=== PATIENT | female | born 1965 | race Caucasian/White ===

== ENCOUNTER 2020-06-10 07:00 | Outpatient (REF) | payer BC, SELFPAY ==
[2020-06-10 07:25] LABS: MANUAL DIFF FLAG NO
[2020-06-10 07:28] LABS: Basophils Absolute Auto 0.1 X10*3/uL (0.0-0.2); Basophils Percent Auto 0.7 % (0-2); Eosinophils Absolute Auto 0.3 X10*3/uL (0.0-0.4); Eosinophils Percent Auto 4.7 % (0-4); Hemoglobin 14.1 g/dl (12.0-16.0); Imm Gran Abs Auto 0.03 X10*3/uL (0.00-0.03); Imm Gran Pct Auto 0.4 % (0.0-0.4); Lymphocytes Absolute Auto 2.2 X10*3/uL (1.2-4.9); Lymphocytes Percent Auto 33.1 % (20-40); Mean Corpuscular Hemoglobin 28.9 pg (27.0-33.0); Mean Corpuscular Volume 90.2 fL (80-98); Mean Platelet Volume 8.7 fL (9.4-12.3); Monocytes Absolute Auto 0.4 X10*3/uL (0.1-1.2); Monocytes Percent Auto 5.3 % (2-11); Neutrophils Absolute Auto 3.8 X10*3/uL (2.0-8.3); Neutrophils Percent Auto 55.8 % (45-73); Platelet Count 315 X10*3/uL (160-400); Red Blood Count 4.88 X10*6/uL (4.20-5.50); Red Cell Distribution Width 12.7 % (11.0-16.0); White Blood Count 6.8 X10*3/uL (4.8-10.8)
[2020-06-10 07:50] LABS: Alanine Aminotransferase 33 U/L (0-31); Albumin Level 4.3 g/dL (3.5-5.0); Alkaline Phosphatase 72 U/L (39-117); Anion Gap 11 (12-20); Aspartate Amino Transferase 23 U/L (5-31); Bilirubin Total 0.6 mg/dL (0.0-1.0); Blood Urea Nitrogen 20 mg/dL (9-16); Carbon Dioxide 27 mmol/L (22-29); Chloride 106 mmol/L (96-108); Cholesterol 224 mg/dL; Estimated Glomerular Filt Rate > 60; Glucose Random 105 mg/dL (60-115); HDL Cholesterol 58 mg/dL; LDL Cholesterol Calculated 139 mg/dl; Potassium 4.4 mmol/l (3.3-5.1); Sodium 140 mmol/L (135-145); Total Protein 7.1 g/dL (6.5-8.0); Triglycerides 136 mg/dL
[2020-06-10 08:12] LABS: Vitamin D 25-OH Total 27.9 ng/mL (>30)
[2020-06-10 08:33] LABS: Erythrocyte Sedimentation Rate 12 MM/HR (0-20)
[2020-06-10 09:33] LABS: Folate 14.8 ng/mL (> or = 4.0); Vitamin B12 508 pg/mL (200-900)
== END 2020-06-10 07:01 | disposition home or self-care (01) ==
LOC: HO.LAB 07:00
PROVIDERS: Visit Provider Internal Medicine
DX: E03.9 Hypothyroidism, unspecified (principal); E78.00 Pure hypercholesterolemia, unspecified
CPT/HCPCS: 36415; 80053; 80061; 82306; 82607; 82746; 84439; 84443; 85025; 85652

== ENCOUNTER 2020-06-17 10:22 | Outpatient (REF) | payer BC, SELFPAY ==
--- NOTE | 2020-06-17 10:27 | XR_ITS ---
EXAMINATION: XR tibia fibula RT 2V, XR knee RT 2V CLINICAL INFORMATION: Pain COMPARISON: None available at the time of this dictation. TECHNIQUE: Frontal lateral tibia-fibula and right knee. FINDINGS: BONES: No fracture or dislocation is present. JOINTS: Joint spaces are preserved. There is no joint effusion. SOFT TISSUE: Normal XR/XR tibia fibula RT 2V IMPRESSION: No significant osseous changes to explain patient's pain symptoms.
--- NOTE | 2020-06-17 10:27 | XR_ITS ---
EXAMINATION: XR tibia fibula RT 2V, XR knee RT 2V CLINICAL INFORMATION: Pain COMPARISON: None available at the time of this dictation. TECHNIQUE: Frontal lateral tibia-fibula and right knee. FINDINGS: BONES: No fracture or dislocation is present. JOINTS: Joint spaces are preserved. There is no joint effusion. SOFT TISSUE: Normal XR/XR knee RT 2V IMPRESSION: No significant osseous changes to explain patient's pain symptoms.
== END 2020-06-17 10:23 | disposition home or self-care (01) ==
LOC: HO.XRAY 10:22
PROVIDERS: PCP Internal Medicine; Visit Provider Internal Medicine
DX: M79.604 Pain in right leg (principal)
CPT/HCPCS: 73560; 73590

== ENCOUNTER 2021-06-15 07:12 | Outpatient (REF) | payer BC, SELFPAY ==
[2021-06-15 11:19] LABS: MANUAL DIFF FLAG NO
[2021-06-15 11:28] LABS: Basophils Percent Auto 0.6 % (0-2); Eosinophils Absolute Auto 0.4 X10*3/uL (0.0-0.4); Eosinophils Percent Auto 5.8 % (0-4); Hematocrit 44.1 % (37.0-47.0); Imm Gran Abs Auto 0.02 X10*3/uL (0.00-0.03); Imm Gran Pct Auto 0.3 % (0.0-0.4); Lymphocytes Absolute Auto 1.9 X10*3/uL (1.2-4.9); Lymphocytes Percent Auto 29.2 % (20-40); Mean Corpuscular HGB Conc 31.7 g/dl (31.0-35.0); Mean Corpuscular Hemoglobin 28.3 pg (27.0-33.0); Mean Corpuscular Volume 89.3 fL (80.0-98.0); Mean Platelet Volume 9.1 fL (9.4-12.3); Monocytes Absolute Auto 0.3 X10*3/uL (0.1-1.2); Monocytes Percent Auto 5.2 % (2-11); Neutrophils Absolute Auto 3.86 x10*3/uL (2.0-8.3); Neutrophils Percent Auto 58.9 % (45-73); Platelet Count 339 X10*3/uL (160-400); Red Blood Count 4.94 X10*6/uL (4.20-5.50); Red Cell Distribution Width 12.9 % (11.0-16.0); White Blood Count 6.6 X10*3/uL (4.8-10.8)
[2021-06-15 12:05] LABS: Alanine Aminotransferase 20 U/L (0-31); Albumin Level 4.4 g/dL (3.5-5.0); Alkaline Phosphatase 71 U/L (39-117); Anion Gap 14 (12-20); Aspartate Amino Transferase 19 U/L (5-31); Bilirubin Total 0.3 mg/dL (0.0-1.0); Blood Urea Nitrogen 18 mg/dL (9-16); Calcium 9.5 mg/dL (8.4-10.2); Carbon Dioxide 24 mmol/L (22-29); Chloride 109 mmol/L (96-108); Cholesterol 239 mg/dL; Estimated Glomerular Filt Rate > 60; Glucose Random 103 mg/dL (60-115); HDL Cholesterol 71 mg/dL; LDL Cholesterol Calculated 155 mg/dl; Potassium 4.7 mmol/L (3.3-5.1); Sodium 142 mmol/L (135-145); Total Protein 7.5 g/dL (6.5-8.0); Triglycerides 69 mg/dL
[2021-06-15 12:30] LABS: Free T4 (Free Thyroxine) 1.03 ng/dL (0.71-1.85); Thyroid Stimulating Hormone 1.44 uIU/mL (0.32-4.0); Vitamin D 25-OH Total 25.4 ng/mL (>30)
[2021-06-15 12:40] LABS: Folate 18.6 ng/mL (> or = 4.0); Vitamin B12 459 pg/mL (200-900)
== END 2021-06-15 07:13 | disposition home or self-care (01) ==
LOC: HO.WFDLDS 07:12
PROVIDERS: PCP Internal Medicine; Visit Provider Internal Medicine
DX: E78.00 Pure hypercholesterolemia, unspecified (principal)
CPT/HCPCS: 36415; 80053; 80061; 82306; 82607; 82746; 84439; 84443; 85025

== ENCOUNTER 2021-09-28 07:05 | Outpatient (REF) | payer BC, SELFPAY ==
[2021-09-28 11:10] LABS: Alanine Aminotransferase 26 U/L (0-31); Albumin Level 4.2 g/dL (3.5-5.0); Alkaline Phosphatase 77 U/L (39-117); Anion Gap 11 (12-20); Aspartate Amino Transferase 23 U/L (5-31); Bilirubin Total 0.5 mg/dL (0.0-1.0); Blood Urea Nitrogen 18 mg/dL (9-16); Calcium 9.7 mg/dL (8.4-10.2); Carbon Dioxide 27 mmol/L (22-29); Chloride 106 mmol/L (96-108); Cholesterol 233 mg/dL; Estimated Glomerular Filt Rate > 60; Glucose Random 107 mg/dL (60-115); HDL Cholesterol 62 mg/dL; LDL Cholesterol Calculated 152 mg/dl; Potassium 4.4 mmol/L (3.3-5.1); Sodium 140 mmol/L (135-145); Total Protein 7.2 g/dL (6.5-8.0); Triglycerides 98 mg/dL
[2021-09-28 11:21] LABS: Estimated Average Glucose 111 mg/dL; Hemoglobin A1c % 5.5 %
== END 2021-09-28 07:06 | disposition home or self-care (01) ==
LOC: HO.WFDLDS 07:05
PROVIDERS: PCP Internal Medicine; Visit Provider Internal Medicine
DX: E78.00 Pure hypercholesterolemia, unspecified (principal)
CPT/HCPCS: 36415; 80053; 80061; 83036

== ENCOUNTER → 2021-12-13 13:37 | Outpatient (BNVA) | payer BC, SELFPAY | PROVIDERS: PCP Internal Medicine; Visit Provider Dietitian, Registered | DX: R73.01 Impaired fasting glucose (principal) | CPT/HCPCS: 97802 ==

== ENCOUNTER → 2022-02-01 12:34 | Outpatient (BNVA) | payer BC, SELFPAY | PROVIDERS: PCP Internal Medicine; Visit Provider Dietitian, Registered | DX: R73.01 Impaired fasting glucose (principal) | CPT/HCPCS: 97803 ==

== ENCOUNTER 2022-03-13 07:14 | Outpatient (REF) | payer BC, SELFPAY ==
[2022-03-13 11:56] LABS: TSH reflex Free T4 0.82 uIU/mL (0.32-4.0)
== END 2022-03-13 07:15 | disposition home or self-care (01) ==
LOC: HO.WFDLDS 07:14
PROVIDERS: Visit Provider Internal Medicine Endocrinology, Diabetes & Metabolism
DX: E03.9 Hypothyroidism, unspecified (principal)
CPT/HCPCS: 36415; 84443

== ENCOUNTER 2022-06-26 07:11 | Outpatient (REF) | payer BC, SELFPAY ==
[2022-06-26 11:24] LABS: MANUAL DIFF FLAG NO
[2022-06-26 11:44] LABS: Basophils Absolute Auto 0.1 X10*3/uL (0.0-0.2); Basophils Percent Auto 0.8 % (0-2); Eosinophils Absolute Auto 0.2 X10*3/uL (0.0-0.4); Hemoglobin 13.8 g/dl (12.0-16.0); Imm Gran Abs Auto 0.03 X10*3/uL (0.00-0.03); Imm Gran Pct Auto 0.5 % (0.0-0.4); Lymphocytes Absolute Auto 2.2 X10*3/uL (1.2-4.9); Lymphocytes Percent Auto 36.7 % (20-40); Mean Corpuscular HGB Conc 32.1 g/dl (31.0-35.0); Mean Corpuscular Hemoglobin 28.3 pg (27.0-33.0); Mean Corpuscular Volume 88.1 fL (80.0-98.0); Mean Platelet Volume 9.1 fL (9.4-12.3); Monocytes Absolute Auto 0.3 X10*3/uL (0.1-1.2); Neutrophils Absolute Auto 3.3 x10*3/uL (2.0-8.3); Platelet Count 332 X10*3/uL (160-400); Red Blood Count 4.88 X10*6/uL (4.20-5.50); Red Cell Distribution Width 13.1 % (11.0-16.0)
[2022-06-26 11:55] LABS: Estimated Average Glucose 108 mg/dL; Hemoglobin A1c % 5.4 %
[2022-06-26 11:59] LABS: Alanine Aminotransferase 21 U/L (0-31); Albumin Level 4.3 g/dL (3.5-5.0); Alkaline Phosphatase 77 U/L (39-117); Anion Gap 13 (12-20); Aspartate Amino Transferase 21 U/L (5-31); Bilirubin Total 0.4 mg/dL (0.0-1.0); Blood Urea Nitrogen 15 mg/dL (9-16); Calcium 9.5 mg/dL (8.4-10.2); Carbon Dioxide 27 mmol/L (22-29); Chloride 108 mmol/L (96-108); Cholesterol 242 mg/dL; Estimated Glomerular Filt Rate > 60; Glucose Random 99 mg/dL (60-115); HDL Cholesterol 67 mg/dL; LDL Cholesterol Calculated 157 mg/dl; Potassium 4.5 mmol/L (3.3-5.1); Sodium 143 mmol/L (135-145); Total Protein 7.3 g/dL (6.5-8.0); Triglycerides 92 mg/dL
== END 2022-06-26 07:12 | disposition home or self-care (01) ==
LOC: HO.WFDLDS 07:11
PROVIDERS: Visit Provider Internal Medicine
DX: E78.00 Pure hypercholesterolemia, unspecified (principal); R73.01 Impaired fasting glucose
CPT/HCPCS: 36415; 80053; 80061; 83036; 85025

== ENCOUNTER 2022-10-09 07:39 | Outpatient (REF) | payer OTHER, SELFPAY ==
[2022-10-09 08:10] LABS: Estimated Average Glucose 111 mg/dL; Hemoglobin A1c % 5.5 %
[2022-10-09 08:22] LABS: Alanine Aminotransferase 28 U/L (0-31); Albumin Level 4.3 g/dL (3.5-5.0); Alkaline Phosphatase 68 U/L (39-117); Anion Gap 12 (12-20); Aspartate Amino Transferase 24 U/L (5-31); Bilirubin Total 0.5 mg/dL (0.0-1.0); Blood Urea Nitrogen 18 mg/dL (9-16); Calcium 9.5 mg/dL (8.4-10.2); Carbon Dioxide 28 mmol/L (22-29); Chloride 108 mmol/L (96-108); Cholesterol 198 mg/dL; Estimated Glomerular Filt Rate > 60; Glucose Random 96 mg/dL (60-115); HDL Cholesterol 52 mg/dL; LDL Cholesterol Calculated 132 mg/dl; Potassium 4.5 mmol/L (3.3-5.1); Sodium 143 mmol/L (135-145); Total Protein 7.3 g/dL (6.5-8.0); Triglycerides 70 mg/dL
== END 2022-10-09 07:40 | disposition home or self-care (01) ==
LOC: HO.LAB 07:39
PROVIDERS: PCP Internal Medicine; Visit Provider Internal Medicine
DX: E78.00 Pure hypercholesterolemia, unspecified (principal); R73.02 Impaired glucose tolerance (oral)
CPT/HCPCS: 36415; 80053; 80061; 83036

== ENCOUNTER 2023-06-27 07:14 | Outpatient (REF) | payer OTHER, SELFPAY ==
[2023-06-27 11:07] LABS: MANUAL DIFF FLAG NO
[2023-06-27 11:09] LABS: Basophils Absolute Auto 0.1 X10*3/uL (0.0-0.2); Basophils Percent Auto 1.3 % (0-2); Eosinophils Absolute Auto 0.4 X10*3/uL (0.0-0.4); Eosinophils Percent Auto 6.3 % (0-4); Hematocrit 43.4 % (37.0-47.0); Hemoglobin 13.8 g/dl (12.0-16.0); Imm Gran Abs Auto 0.02 X10*3/uL (0.00-0.03); Imm Gran Pct Auto 0.4 % (0.0-0.4); Lymphocytes Absolute Auto 2.3 X10*3/uL (1.2-4.9); Mean Corpuscular HGB Conc 31.8 g/dl (31.0-35.0); Mean Corpuscular Hemoglobin 28.6 pg (27.0-33.0); Mean Platelet Volume 9.5 fL (9.4-12.3); Monocytes Absolute Auto 0.3 X10*3/uL (0.1-1.2); Monocytes Percent Auto 5.4 % (2-11); Neutrophils Absolute Auto 2.5 x10*3/uL (2.0-8.3); Neutrophils Percent Auto 44.6 % (45-73); Platelet Count 318 X10*3/uL (160-400); Red Blood Count 4.82 X10*6/uL (4.20-5.50); Red Cell Distribution Width 12.5 % (11.0-16.0); White Blood Count 5.5 X10*3/uL (4.8-10.8)
[2023-06-27 11:42] LABS: Alanine Aminotransferase 22 U/L (0-31); Albumin Level 4.3 g/dL (3.5-5.0); Alkaline Phosphatase 63 U/L (39-117); Anion Gap 10 (12-20); Aspartate Amino Transferase 24 U/L (5-31); Bilirubin Total 0.4 mg/dL (0.0-1.0); Blood Urea Nitrogen 17 mg/dL (9-16); Calcium 9.4 mg/dL (8.4-10.2); Carbon Dioxide 27 mmol/L (22-29); Chloride 108 mmol/L (96-108); Cholesterol 193 mg/dL (<200); Estimated Glomerular Filt Rate > 60; Glucose Random 91 mg/dL (60-115); HDL Cholesterol 61 mg/dL (>40); LDL Cholesterol Calculated 119 mg/dL (<100); Potassium 4.2 mmol/L (3.3-5.1); Sodium 141 mmol/L (135-145); Total Protein 7.3 g/dL (6.5-8.0); Triglycerides 68 mg/dL (<150)
[2023-06-27 12:01] LABS: Folate 14.2 ng/mL (> or = 4.0); Vitamin B12 471 pg/mL (200-900)
[2023-06-27 12:08] LABS: Free T4 (Free Thyroxine) 1.09 ng/dL (0.71-1.85); Thyroid Stimulating Hormone 0.52 uIU/mL (0.32-4.0); Vitamin D 25-OH Total 40.5 ng/mL (>30)
== END 2023-06-27 07:15 | disposition home or self-care (01) ==
LOC: HO.WFDLDS 07:14
PROVIDERS: Visit Provider Internal Medicine
DX: E78.00 Pure hypercholesterolemia, unspecified (principal); E55.9 Vitamin D deficiency, unspecified
CPT/HCPCS: 36415; 80053; 80061; 82306; 82607; 82746; 84439; 84443; 85025

== ENCOUNTER 2023-07-01 12:25 | Outpatient (AMB) | payer OTHER, SELFPAY ==
[2023-07-01 12:27] VITALS: BP 118/86; PULSE 71; O2SAT 98; BMI 26.6
--- NOTE | 2023-07-01 12:27 | MHC.PC.OV ---
Vital Signs 07/01/23 12:27 Height 5 ft 5 in Weight 160 lb 0.2 oz BMI 26.6 BP 118/86 Blood Pressure Location Lt brachial Position Sitting Pulse 71 Pulse Source Pulse Oximeter Pulse Oximetry (%) 98 Oxygen Delivery Method Room Air Intake Visit Reasons: Annual Exam Scuba Instructor Required: No Allergies clarithromycin [From Biaxin] Allergy (Intermediate, Verified 07/01/23 12:31) diarrhea oxycodone [From Tylox] Adverse Reaction (Intermediate, Verified 07/01/23 12:31) vomiting Medication List - Last Reconciled 07/01/23 by Dina Machado MD budesonide 32 mcg/actuation (Rhinocort Allergy) 2 sprays intranasal DAILY cetirizine (Zyrtec) 10 mg PO DAILY levothyroxine 125 mcg PO DAILY simvastatin 5 mg PO BEDTIME Tobacco use date assessed: 07/01/23 Dental Screening Dental Screen Date: 07/01/23 Did you have a dental visit in the last 12 months?: Yes Did you have a dental problem in the last 6 months where you did not have access to dental care?: No Was dental information given to patient?: Patient has dentist HPI Annual Exam HPI Details 57-year-old female with impaired glucose tolerance hypercholesterolemia hypothyroidism last seen in October 2022. Patient was advised to get blood work done. Patient is up-to-date with Paps, due for mammogram and up to the with colonoscopy. occ lightheaded, PFSH Medical History (Updated 07/01/23 @ 12:55 by Dina Machado MD) Colon cancer screening Raynauds disease Hypercholesterolemia Hypothyroid Surgical History No pertinent past surgical history Family History Father CAD (coronary artery disease) Mother Myocardial infarction Maternal Aunt Renal cancer Social History (Updated 07/01/23 @ 12:41 by Dina Machado MD) Housing: House Alcohol intake: current Alcohol intake frequency: a few times a week Patient Tobacco Use Status: Never used Tobacco e-Cigarette/Vaping Use: Never Used Second Hand Smoke Exposure: No Current occupational status: employed Cognitive needs: No Hearing needs: No Vision needs: Yes (wears contacts) Questionnaire PHQ-9 Over the last 2 weeks, how often have you been bothered by any of the following problems? 1. Little interest or pleasure in doing things: not at all 2. Feeling down, depressed, or hopeless: not at all 3. Trouble falling or staying asleep, or sleeping too much: not at all 4. Feeling tired or having little energy: not at all 5. Poor appetite or overeating: not at all 6. Feeling bad about yourself - or that you are a failure or have let yourself or your family down: not at all 7. Trouble concentrating on things, such as reading the newspaper or watching television: not at all 8. Moving or speaking so slowly that other people could have noticed. Or the opposite - being so fidgety or restless that you have been moving around a lot more than usual: not at all 9. Thoughts that you would be better off or of hurting yourself in some way: not at all Total score: 0 Depression Screening Interpretation: Negative Depression Screening Done: Yes Source: Developed by Drs. David Lowe, Yojana Moon, David Jaquez and colleagues, with an educational alma from [employer]. Thrive Questionnaire Date Thrive assessed: 07/01/23 I am a: Patient What is your living situation today?: I have a steady place to live Within the past 12 months, did the food you bought not last and you didn't have the money to get more?: Never true Within the past 12 months, did you worry whether your food would run out before you got money to buy more?: Never true Currently or been in a relationship where the following occur: no concerns reported AUDIT C Alcohol Use Questionnaire (AUDIT-C) 1. How often do you have a drink containing alcohol?: 2-3 times a week 2. How many drinks containing alcohol do you have on a typical day when you are drinking?: 1 or 2 3. How often do you have six or more drinks on one occasion?: Never Total Score: 3 AFIA-7 AMB Questionnaire AFIA-7 Date AFIA - 7 assessed: 07/01/23 Feeling nervous, anxious, or on edge: 0 = Not at all Not being able to stop or control worryin = Not at all Worrying too much about different things: 0 = Not at all Trouble relaxin = Not at all Being so restless that it is hard to sit still: 0 = Not at all Becoming easily annoyed or irritable: 0 = Not at all Feeling afraid as if something awful might happen: 0 = Not at all Total AFIA-7 score (0-4 normal; 5-9 mild; 10-14 moderate; 15-21 severe): 0 Source: Developed by Drs. David Lowe, Yojana Moon, David Jaquez and colleagues, with an educational alma from [employer]. Review of Systems Const Denies poor appetite and Denies weakness Eyes Denies no additional complaints ENT Reports Normal hearing present, Denies dizziness, Denies nasal congestion, Denies tinnitus and Denies sore throat Card Denies chest pain, Denies syncope, Denies rapid heart rate and Denies dyspnea Resp Denies cough and Denies dyspnea GI Denies change in stool character, Reports constipation, Denies diarrhea, Denies nausea and Denies vomiting Denies urinary frequency, Denies difficulty voiding and Denies dysuria Neuro Reports Normal hearing present, Denies confusion, Denies dizziness, Denies syncope and Denies weakness Psych Denies confusion Physical exam (Primary Care) Vital Signs: Last Vital Signs Pulse 71 07/01/23 12:27 BP 118/86 07/01/23 12:27 Pulse Ox 98 07/01/23 12:27 Oxygen Delivery Method Room Air 07/01/23 12:27 BMI result Body Mass Index 26.6 Tobacco/Smoking Status: Tobacco use Status Tobacco use date assessed 07/01/23 07/01/23 12:28 Patient Tobacco Use Status Never used Tobacco 07/01/23 12:41 e-Cigarette/Vaping Use Never Used 07/01/23 12:41 PHQ-9: PHQ-9 Score PHQ-9: Total score 0 07/01/23 12:36 Depression Screening Interpretation: Negative Thrive Assessment: Date of Thrive Assessment Date Thrive assessed 07/01/23 07/01/23 12:35 Currently or been in a relationship where the following occur: no concerns reported Const General: No confusion Orientation/consciousness: No confusion HENMT Head: Yes normocephalic Ears: external ears normal and TM's normal bilaterally Face and sinus: Yes normal facial exam Mouth: moist mucous membranes Throat: Yes tonsils normal Eyes Conjunctivae: conjunctivae normal Pupils: Equal, round and reactive pupils present and Pupil accommodation reflex normal Direct Ophthalmoscopy: normal light reflex Neck Neck: No lymphadenopathy Thyroid: Thyroid normal Chest Chest palpation & inspection: normal inspection of the chest Resp Effort & Inspection: normal respiratory effort and no audible wheezes Auscultation: clear to auscultation bilaterally, no crackles, no wheezes and lung sounds not diminished Cardio Rate: regular rate Rhythm: regular rhythm Peripheral pulses: radial pulses present and dorsalis pedis present GI Palpation (GI): no masses Auscultation: normal bowel sounds and normoactive bowel sounds Rectal Exam - Female: deferred Skin General skin exam: no rashes or lesions noted Rashes: no rashes Neuro General: No confusion Cranial nerves: Yes Equal, round and reactive pupils present and Yes Normal hearing present Cognition (Neuro): normal cognition Gait exam (Neuro): Normal gait present Motor exam (neuro): 5/5 motor strength present throughout Deep tendon reflexes (DTR's): Right brachioradialis reflex intensity grade: 2+, Left brachioradialis reflex intensity grade: 2+, Right patellar reflex intensity grade: 2+ and Left patellar reflex intensity grade: 2+ Extrem General: No edema Office Procedures Flu Questionnaire Does the patient have a severe egg allergy?: No Does the patient have severe life threatening allergies?: No Does the patient have a fever or illness today?: No Has the patient ever had Guillain-[place] Syndrome?: No Has the patient ever had any past reaction to a flu shot?: No Immunizations flu vacc [id number] 6mos up(PF) 60 mcg(15 mcgx4)/0.5 mL IM syringe Performing Provider: Dina Machado MD [facility] Administered by: JESSEE Aquino on 07/01/23 12:48 Dose Route Admin Location Dispensed Lot Number Expiration Date [employer] 0.5 mL IM Left Deltoid 0.5 mL [id number] 02/09/24 [id number] [employer] VIS Given Date VIS Provided VIS Publication Date 07/01/23 Single Vaccine 21 Eligibility Eligibility Date Funding Source Not [facility] Eligible 07/01/23 Private Assessment and Plan Assessment & Plan (1) Annual physical exam: Code(s): Z00.00 - Encounter for general adult medical examination without abnormal findings (2) Hypothyroid: Comment: Goiter seeing Dr. Ortega June 2015 Code(s): E03.9 - Hypothyroidism, unspecified Qualifiers: Hypothyroidism type: unspecified Qualified Code(s): E03.9 - Hypothyroidism, unspecified Plan: Continue with thyroid medication (3) Hypercholesterolemia: Comment: memory problem Code(s): E78.00 - Pure hypercholesterolemia, unspecified Plan: Avoid fried foods, chicken skin, eggs, butter margarine, pastries and meat. Be it pork or beef they have a lot of cholesterol LDL goal of less than 130 and triglyceride of less than 150 patient on simvastatin 5 mg once a (4) Generalized anxiety disorder: Code(s): F41.1 - Generalized anxiety disorder Plan: Stable (5) Overweight (BMI 25.0-29.9): Code(s): E66.3 - Overweight Plan: continue with diet and exercise (6) Floaters: Code(s): H43.399 - Other vitreous opacities, unspecified eye Orders: Orders Influenza [id number] Immunization Today Z23 - Encounter for immunization Coding Level of Care Code Est Pt Prev Care 40-64y(13520) Diagnoses Annual physical exam Z00.00 Hypothyroidism, unspecified type E03.9 Hypothyroidism type: unspecified Hypercholesterolemia E78.00 Generalized anxiety disorder F41.1 Overweight (BMI 25.0-29.9) E66.3 Floaters H43.399
== END 2023-07-01 13:00 | disposition home or self-care (01) ==
PROVIDERS: Visit Provider Internal Medicine
DX: Z00.00 Encounter for general adult medical examination without abnormal findings (principal); E03.9 Hypothyroidism, unspecified; E78.00 Pure hypercholesterolemia, unspecified; Z23 Encounter for immunization; F41.1 Generalized anxiety disorder; E66.3 Overweight; H43.399 Other vitreous opacities, unspecified eye
CPT/HCPCS: 90471; 90686; 99396

== ENCOUNTER 2024-03-24 07:46 | Outpatient (REF) | payer OTHER, SELFPAY ==
[2024-03-24 12:48] LABS: Free T4 (Free Thyroxine) 1.11 ng/dL (0.71-1.85); TSH reflex Free T4 0.54 uIU/mL (0.32-4.0)
[2024-03-25 19:04] LABS: Transglutaminase Ab IgG <1.0 U/mL
== END 2024-03-24 07:47 | disposition home or self-care (01) ==
LOC: HO.WFDLDS 07:46
DX: E03.9 Hypothyroidism, unspecified (principal); R53.83 Other fatigue
CPT/HCPCS: 36415; 84439; 84443; 86364

== ENCOUNTER 2024-07-08 12:36 | Outpatient (AMB) | payer OTHER, SELFPAY ==
[2024-07-08 12:38] VITALS: BP 122/76; PULSE 80; O2SAT 98; BMI 27.3
--- NOTE | 2024-07-08 12:38 | A.OFFPC_ITS ---
Vital Signs 07/08/24 12:38 Height 5 ft 5 in Weight 74.389 kg BMI 27.3 BP 122/76 Blood Pressure Location Lt brachial Position Sitting Pulse 80 Pulse Source Pulse Oximeter Pulse Oximetry (%) 98 Oxygen Delivery Method Room Air Intake Visit Reasons: Annual Exam Allergies clarithromycin [From Biaxin] Allergy (Intermediate, Verified 07/08/24 12:38) diarrhea oxycodone [From Tylox] Adverse Reaction (Intermediate, Verified 07/08/24 12:38) vomiting Medication List - Last Reconciled 07/08/24 by Dina Machado MD budesonide 32 mcg/actuation (Rhinocort Allergy) 2 sprays intranasal DAILY cetirizine (Zyrtec) 10 mg PO DAILY levothyroxine 125 mcg PO DAILY melatonin 5 mg PO .QHS cqgvjqoabhtj-Um-berr-minerals tabs PO Tobacco use date assessed: 07/08/24 Dental Screening Dental Screen Date: 07/08/24 Did you have a dental visit in the last 12 months?: Yes Did you have a dental problem in the last 6 months where you did not have access to dental care?: No Was dental information given to patient?: Patient has dentist HPI Annual Exam HPI Details 58 year old overweight female with a his tory of hypothyroid, hypercholesterolemia generalized anxiety disorder coming in for physical exam last seen last year. Patient's colonoscopy was done in 2018, mammogram up-to-date 2023. stopped 6 weeks simvastatin ? memory and leg cramps PFSH Medical History (Updated 07/08/24 @ 12:52 by Dina Machado MD) Colon cancer screening Raynauds disease Hypercholesterolemia Hypothyroid Surgical History No pertinent past surgical history Family History (Updated 07/08/24 @ 12:39 by Eli Champagne CMA) Father CAD (coronary artery disease) Mother Myocardial infarction Maternal Aunt Renal cancer Social History (Updated 07/01/23 @ 12:41 by Dina Machado MD) Housing: House Alcohol intake: current Alcohol intake frequency: a few times a week Comment: 3 days weekend 2-3 drinks Patient Tobacco Use Status: Never used Tobacco Tobacco use type: Cigarette e-Cigarette/Vaping Use: Never Used Second Hand Smoke Exposure: No Current occupational status: employed Cognitive needs: No Hearing needs: No Vision needs: Yes (wears contacts) Questionnaire PHQ-9 Over the last 2 weeks, how often have you been bothered by any of the following problems? 1. Little interest or pleasure in doing things: not at all 2. Feeling down, depressed, or hopeless: not at all 3. Trouble falling or staying asleep, or sleeping too much: not at all 4. Feeling tired or having little energy: not at all 5. Poor appetite or overeating: not at all 6. Feeling bad about yourself - or that you are a failure or have let yourself or your family down: not at all 7. Trouble concentrating on things, such as reading the newspaper or watching television: not at all 8. Moving or speaking so slowly that other people could have noticed. Or the opposite - being so fidgety or restless that you have been moving around a lot more than usual: not at all 9. Thoughts that you would be better off or of hurting yourself in some way: not at all Total score: 0 Source: Developed by Drs. David Lowe, Yojana Moon, David Jaquez and colleagues, with an educational alma from [employer]. Thrive Questionnaire Date Thrive assessed: 07/08/24 I am a: Patient What is your living situation today?: I have a steady place to live Within the past 12 months, did the food you bought not last and you didn't have the money to get more?: Never true Within the past 12 months, did you worry whether your food would run out before you got money to buy more?: Never true Do you have trouble paying for medicines?: No Do you have trouble getting transportation to medical appointments?: No Do you have trouble paying your heating and electricity bill?: No Do you have trouble taking care of your child, family member or friend?: No Do you have trouble with day-to-day activities such as bathing, preparing meals, shopping, managing finances, etc.?: No Are you currently unemployed and looking for a job?: No Are you interested in more education?: No Please select the resources that you would like help with: None Currently or been in a relationship where the following occur: I choose not to answer THRIVE Score: 0 AUDIT C Alcohol Use Questionnaire (AUDIT-C) 1. How often do you have a drink containing alcohol?: 2-3 times a week 2. How many drinks containing alcohol do you have on a typical day when you are drinking?: 1 or 2 3. How often do you have six or more drinks on one occasion?: Never Total Score: 3 AFIA-7 AMB Questionnaire AFIA-7 Date AFIA - 7 assessed: 07/08/24 Feeling nervous, anxious, or on edge: 0 = Not at all Not being able to stop or control worryin = Not at all Worrying too much about different things: 0 = Not at all Trouble relaxin = Not at all Being so restless that it is hard to sit still: 0 = Not at all Becoming easily annoyed or irritable: 0 = Not at all Feeling afraid as if something awful might happen: 0 = Not at all Total AFIA-7 score (0-4 normal; 5-9 mild; 10-14 moderate; 15-21 severe): 0 Source: Developed by Drs. David Lowe, Yojana Moon, David Jaquez and colleagues, with an educational alma from [employer]. Review of Systems Const Denies poor appetite and Denies weakness Eyes Denies no additional complaints ENT Reports Normal hearing present, Denies dizziness, Denies nasal congestion, Denies tinnitus and Denies sore throat Card Denies chest pain, Denies syncope, Denies rapid heart rate and Denies dyspnea Resp Denies cough and Denies dyspnea GI Denies change in stool character, Reports constipation, Denies diarrhea, Denies nausea and Denies vomiting Denies urinary frequency, Denies difficulty voiding and Denies dysuria Neuro Reports Normal hearing present, Denies confusion, Denies dizziness, Denies syncope and Denies weakness Psych Denies confusion Physical exam (Primary Care) Vital Signs: Last Vital Signs Pulse 80 07/08/24 12:38 BP 122/76 07/08/24 12:38 Pulse Ox 98 07/08/24 12:38 Oxygen Delivery Method Room Air 07/08/24 12:38 BMI result Body Mass Index 27.3 Tobacco/Smoking Status: Tobacco use Status Tobacco use date assessed 07/08/24 07/08/24 12:44 Patient Tobacco Use Status Never used Tobacco 07/08/24 12:44 Tobacco use type Cigarette 07/08/24 12:44 e-Cigarette/Vaping Use Never Used 07/08/24 12:44 PHQ-9: PHQ-9 Score PHQ-9: Total score 0 07/08/24 12:44 Thrive Assessment: Date of Thrive Assessment Date Thrive assessed 07/08/24 07/08/24 12:44 Currently or been in a relationship where the following occur: I choose not to answer Const General: No confusion Orientation/consciousness: No confusion HENMT Head: Yes normocephalic Ears: external ears normal and TM's normal bilaterally Face and sinus: Yes normal facial exam Mouth: moist mucous membranes Throat: Yes tonsils normal Eyes Conjunctivae: conjunctivae normal Pupils: Equal, round and reactive pupils present and Pupil accommodation reflex normal Direct Ophthalmoscopy: normal light reflex Neck Neck: No lymphadenopathy Thyroid: Thyroid normal Chest Chest palpation & inspection: normal inspection of the chest Resp Effort & Inspection: normal respiratory effort and no audible wheezes Auscultation: clear to auscultation bilaterally, no crackles, no wheezes and lung sounds not diminished Cardio Rate: regular rate Rhythm: regular rhythm Peripheral pulses: radial pulses present and dorsalis pedis present GI Palpation (GI): no masses Auscultation: normal bowel sounds and normoactive bowel sounds Rectal Exam - Female: deferred Skin General skin exam: no rashes or lesions noted Rashes: no rashes Neuro General: No confusion Cranial nerves: Yes Equal, round and reactive pupils present and Yes Normal hearing present Cognition (Neuro): normal cognition Gait exam (Neuro): Normal gait present Motor exam (neuro): 5/5 motor strength present throughout Deep tendon reflexes (DTR's): Right brachioradialis reflex intensity grade: 2+, Left brachioradialis reflex intensity grade: 2+, Right patellar reflex intensity grade: 2+ and Left patellar reflex intensity grade: 2+ Extrem General: No edema Office Procedures Flu Questionnaire Does the patient have a severe egg allergy?: No Does the patient have severe life threatening allergies?: No Does the patient have a fever or illness today?: No Has the patient ever had Guillain-[place] Syndrome?: No Has the patient ever had any past reaction to a flu shot?: No Immunizations Fluarix Triv [id number] (PF) 45 mcg (15 mcg x 3)/0.5 mL IM syringe Performing Provider: Dina Machado MD [facility] Administered by: Eli Champagne CMA on 07/08/24 13:12 Dose Route Admin Location Dispensed Lot Number Expiration Date [facility] Trouble Tracer 0.5 mL IM Left Deltoid 0.5 mL [id number] 02/08/25 [id number] [employer] VIS Given Date VIS Provided VIS Publication Date 07/08/24 Single Vaccine 21 Eligibility Eligibility Date Funding Source Not [facility] Eligible 07/08/24 Private Coding Level of Care Code Est Pt Prev Care 40-64y(53650) Diagnoses Annual physical exam Z00.00 Overweight (BMI 25.0-29.9) E66.3 Hypothyroidism, unspecified type E03.9 Hypothyroidism type: unspecified Generalized anxiety disorder F41.1 Hypercholesterolemia E78.00 Assessment & Plan Assessment & Plan (1) Annual physical exam: Code(s): Z00.00 - Encounter for general adult medical examination without abnormal findings Category: Medical Plan: Patient is advised to eat healthy, keep well hydrated, keep active and have adequate sleep. (2) Overweight (BMI 25.0-29.9): Code(s): E66.3 - Overweight Category: Medical Plan: Diet and exercise (3) Hypothyroid: Comment: Goiter seeing Dr. Ortega June 2015 Code(s): E03.9 - Hypothyroidism, unspecified Category: Medical Qualifiers: Hypothyroidism type: unspecified Qualified Code(s): E03.9 - Hypothyroidism, unspecified Plan: Continue with thyroid medication and blood work requested (4) Generalized anxiety disorder: Code(s): F41.1 - Generalized anxiety disorder Category: Medical Plan: Stable (5) Hypercholesterolemia: Comment: memory problem Code(s): E78.00 - Pure hypercholesterolemia, unspecified Category: Medical Plan: Avoid fried foods, chicken skin, eggs, butter margarine, pastries and meat. Be it pork or beef they have a lot of cholesterol LDL goal of less than 130 and triglyceride of less than 150. On simvastatin 5 mg once a day Orders: Orders Vitamin B12 and Folate Today E78.00 - Pure hypercholesterolemia, unspecified Vitamin D 25-OH Total Today E78.00 - Pure hypercholesterolemia, unspecified Complete Blood Count Auto Diff Today E78.00 - Pure hypercholesterolemia, unspecified Comprehensive Met. Panel Today E78.00 - Pure hypercholesterolemia, unspecified Lipid Panel Today E78.00 - Pure hypercholesterolemia, unspecified Free T4 (Free Thyroxine) Today E78.00 - Pure hypercholesterolemia, unspecified Thyroid Stimulating Hormone Today E78.00 - Pure hypercholesterolemia, unspecified Influenza [id number] Immunization Today Z23 - Encounter for immunization Medications: New Fluarix Triv [id number] (PF) (flu vacc [id number] 6mos up(PF)) 0.5 mL IM ONCE 0.5 mL 0RF NS Z23 - Encounter for immunization
== END 2024-07-08 13:18 | disposition home or self-care (01) ==
PROVIDERS: PCP Internal Medicine; Visit Provider Internal Medicine
DX: Z00.00 Encounter for general adult medical examination without abnormal findings (principal); E66.3 Overweight; E03.9 Hypothyroidism, unspecified; F41.1 Generalized anxiety disorder; E78.00 Pure hypercholesterolemia, unspecified; Z23 Encounter for immunization

== ENCOUNTER → 2024-07-08 12:36 | Outpatient (BNVA) | payer OTHER, SELFPAY | PROVIDERS: PCP Internal Medicine; Visit Provider Internal Medicine | DX: Z00.00 Encounter for general adult medical examination without abnormal findings (principal); Z23 Encounter for immunization; E66.3 Overweight; Z68.27 Body mass index [BMI] 27.0-27.9, adult; E03.9 Hypothyroidism, unspecified; F41.1 Generalized anxiety disorder; E78.00 Pure hypercholesterolemia, unspecified; Z79.899 Other long term (current) drug therapy | CPT/HCPCS: 90471; 90656; 96127 ==

== ENCOUNTER 2024-11-27 07:32 | Outpatient (REF) | payer OTHER, SELFPAY ==
--- OUTSIDE RECORDS SUMMARY | 2024-11-27 07:34 | XMS_ITS | Patient Health Record ---
Author Organization [facility] marva Hunt Address [address] [place] [address] Care Team Providers Care Binding Machine Operator Name Role Phone Carter Dina Primary Care Provider Unavailabl e Lis Palacios Unavailable [phone] Results Component Value Reference Range Notes X ray : Foot, left 3V Reviewed date:02/07/2024 11:39:53 AM Interpretation:See Examination above Performing Lab: Notes/Report: See Examination above X ray : Foot, right 3V Reviewed date:02/07/2024 11:39:44 AM Interpretation:See Examination above Performing Lab: Notes/Report: See Examination above Reason For Referral Diagnosis 1 Bunion of unspecifie d foot (M21.619) Referring Provider First Name Raisaradha Referring Provider Last Name Referred [facility] Referred Provider Lis Palacios Referred Address [address] [place], [place],[address], Referred Provider Specialty Podiatry Referral Priority Routine Medications Medication SIG (Take, Route, Fr equency, Duration) Notes Start Date End Date Status Levothyroxine Sodium Active Simvastatin Active Social History Tobacco Use: Social History Observation Description Date Details (start date - stop date) Never Smoker NA - NA Tobacco Use/Smoking Question Answer Notes Are you a: nonsmoker Additional Findings: Tobacco Non-User Current no n-smoker Alcohol Screen Question Answer Notes Did you have a drink containing alcohol in the p ast year? Yes Points 0 Interpretation Negative Tobacco use other than smoking: Question Answer Notes Are you an other tobacco user? No Problems Problem Type SNOMED Code ICD Code Onset Dates Problem Status W/U Status Risk Notes Problem Acquired hammer toe of right foot (9960389427167263) Other hammer toe(s) (acquired), right foot (M20.41) Active confirmed Problem Acquired hammer toe of left foot (0145996575823884) Other hammer toe(s) (acquired), left foot (M20.42) Active confirmed Problem Acquired hallux valgus (73467497) Hallux valgus (acquired), right foot (M20.11) Active confirmed Problem Localized, primary osteoarthritis of the ankle and/or foot (571767117) Arthritis of joint of lesser toe, left (M19.072) Active confirmed Problem Localized, primary osteoarthritis of the ankle and/or foot (386930745) Arthritis of joint of lesser toe, right (M19.071) Active confirmed Vital Signs Height 5 ft 5 in in 02/07/2024 Weight 156 lbs 02/07/2024 BMI 25.96 kg/m2 02/07/2024 Encounters Encounter Location Date Provider Diagnosis [facility] [address] 02/07/2024 Lis Palacios Pain in right foot M79.671 ; Hallux valgus (acquired), right foot M20.11 ; Pain in right ankle and joints of right foot M25.571 ; Bursitis of right foot M77.51 ; Pain in right toe(s) M79.674 ; Other hammer toe(s) (acquired), right foot M20.41 ; Pain in left toe(s) M79.675 and Other hammer toe(s) (acquired), left foot M20.42 [facility] [address] [place] [address] 01/14/2024 Lis Palacios Assessments Encounter Date Diagnosis (ICD Code) Assessment Notes Treatment Notes Treatment Clinical Notes Section Notes 02/07/2024 Pain in right foot (ICD-10 - M79.671) 02/07/2024 Hallux valgus (acquired), right foot (ICD-10 - M20.11) 02/07/2024 Pain in right ankle and joints of right foot (ICD-10 - M25.571) 02/07/2024 Bursitis of right foot (ICD-10 - M77.51) 02/07/2024 Pain in right toe(s) (ICD-10 - M79.674) 02/07/2024 Other hammer toe(s) (acquired), right foot (ICD-10 - M20.41) 02/07/2024 Pain in left toe(s) (ICD-10 - M79.675) 02/07/2024 Other hammer toe(s) (acquired), left foot (ICD-10 - M20.42) Plan Of Treatment No Information Insurance Providers Payer Name Payer Address Payer Phone Subscriber Number Group Number Insured Name Patient Relationship to Insured Coverage Start Date Coverage End Date [place] [address] [place] [phone] [id number] Roxie Dawn Self - patient is the insured Medical (General) History Medical History History ICD Code covid-19 thyroid Chicken pox Surgical History Surgery Date(Month/Year) laser eye surgery
--- OUTSIDE RECORDS SUMMARY | 2024-11-27 07:34 | XMS_ITS ---
Author Organization [facility] Address [address] [facility] [place] [address] Care Team Providers Care Billiard Table Mechanic Name Role Phone Dina Machado Primary Care Provider Unavailabl e Black, Lis Unavailable [phone] Results Component Value Reference Range Notes X ray : Foot, left 3V Reviewed date:02/07/2024 11:39:53 AM Interpretation:See Examination above Performing Lab: Notes/Report: See Examination above X ray : Foot, right 3V Reviewed date:02/07/2024 11:39:44 AM Interpretation:See Examination above Performing Lab: Notes/Report: See Examination above REASON FOR VISIT pt states last pcp visit was 06/2023, Foot pain, Painful Toe(s) Medications Medication SIG (Take, Route, Fr equency, [...] Status W/U Status Risk Notes Problem Acquired hallux valgus (46641648) Hallux valgus (acquired), right foot (M20.11) Active confirmed Problem Acquired hammer toe of right foot (9265654541851400) Other hammer toe(s) (acquired), right foot (M20.41) Active confirmed Problem Localized, primary osteoarthritis of the ankle and/or foot (828043524) Arthritis of joint of lesser toe, right (M19.071) Active confirmed Problem Acquired hammer toe of left foot (5968690099921699) Other hammer toe(s) (acquired), left foot (M20.42) Active confirmed Problem Localized, primary osteoarthritis of the ankle and/or foot (879332064) Arthritis of joint of lesser toe, left (M19.072) Active confirmed Vital Signs Height 5 ft 5 in in 02/07/2024 Weight 156 lbs 02/07/2024 BMI 25.96 kg/m2 02/07/2024 Encounters Encounter Location Date Provider Diagnosis [facility] [address] [place] [address] 02/07/2024 Lis Black Pain in right foot M79.671 ; Hallux valgus (acquired), right foot M20.11 ; Pain in right ankle and joints of right foot M25.571 ; Bursitis of right foot M77.51 ; Pain in right toe(s) M79.674 ; Other hammer toe(s) (acquired), right foot M20.41 ; Pain in left toe(s) M79.675 and Other hammer toe(s) (acquired), left foot M20.42 Assessments Encounter Date Diagnosis (ICD Code) Assessment [...] foot (ICD-10 - M20.42) Plan Of Treatment Next Appt Details Follow Up: prn, Reason: Progress Notes * Aziza DAWNneDOB:1965 (58 yo F)Acc No.[id number]:02/07/2024 Progress Notes Patient:?Roxie Dawn Provider:?Lis Palacios DPM :1965???Age:58 Y???Sex:Female D ate:02/07/2024 Address:[address] [place], [place] [id number] Pcp:Dina Machado Subjective: * Chief Complaints: * ???Pt states last pcp visit was 06/2023Foot painPainful Toe(s) * HPI: ???Foot Pain:?Location:?Inside, Great toe joint, RIGHT.?Duration:?several months.?Course:?worse.?Aggrevated:?any pressure.?Treatments:?rest/alter normal daily activity.?Toe pain:?Nature:?tenderness.?Location:?B/L feet.?Duration:?several months.?Course:?worse.?Aggrevated by:?shoes, any pressure.?Treatments:?rest/alter normal daily activity, change in shoes.? * ROS:?General/Constitutional:?Nausea?denies.?Vomiting?denies.?Hunger Thirst?denies.?Loss appetite?denies.?Chills?denies.?Fatigue?denies.?Fever?denies.?Night Sweats?denies.?Unexplained weight loss?denies.?Unexplained weight gain?denies.?HEENTM:?Dentures?denies.?Dizziness?denies.?Glasses/contacts?admits.?Retinopathy?de nies.?Blurred/double vision?denies.?TMJ?denies.?Discharge/drainage?denies.?Implants?denies.?Sore throat?denies.?Dental implants?denies.?Hard of hearing ?denies.?Difficulty chewing/swallowing/speaking?denies.?Nose bleeds?denies.?Sore mouth?denies.?Respiratory:?On Oxygen?denies.?Pneumonia/pleurisy?denies.?Bronchitis?denies.?Emphysema?denies.?C oughing?denies.?Cough blood?denies.?Shortness of breath?denies.?Wheezing?denies.?Cardiovascular:?Pacemaker?denies.?MVP?denies.?WPW?denies.?CHF?denies.?Heart attack?denies.?Septal defect?denies.?Rapid beat?denies.?Chest pain ?denies.?Atrial Fib.?denies.?Murmur/Palpitations?denies.?Gastrointestinal:?Hemorrhoids?denies.?Stomach/Abdominal pain?denies.?Dark blood stool?denies.?Irritable bowel ?denies.?Constipation?denies.?Diarrhea?denies.?Hematology:?Swelling?denies.?Clots?denies.?Varicose Veins?denies.?Bruising?denies.?Bleeding problem?denies.?Genitourinary:?Blood urine?denies.?Frequent/Painfu/urination/bladder control?denies.?Kidney stones?denies.?Infection (UTI)?denies.?Nephropathy?denies.?sex trans dis (STD)?denies.?Prostate?denies.?Musculoskeletal:?Hammertoes?denies.?Bunions?admits.?Back Pain?denies.?Muscle Cramps/ Resting?denies.?Muscle cramps / walking?denies.?Generalized aches and pains?denies.?Weakness?denies.?Integ.:?Abarca?denies.?Scars?denies.?Corns/calluses?denies.?Ingrown nails?denies.?Painful nails?denies.?Open Sores?denies.?Rashes?denies.?Neurologic:?Difficulty sleeping?denies.?Brain disorder?denies.?Numbness?denies.?Balance trouble?denies.?Confusion?denies.?Fainting/blackouts?denies.?Tingling?denies.?Tr emors?denies.? * Medical History:? * Surgical History:?laser eye surgery * Hospitalization/Major Diagno stic Procedure:?No Hospitalization History. * Family History:?Mother: gm hoyos, diagnosed with Unspecified essential hypertension, Unspecified heart disease.?Father: alive, diagnosed with Unspecified essential hypertension.? * Social History:?Tobacco Use:?Tobacco Use/Smoking?Are you a:?nonsmoker ?Additional Findings: Tobacco Non-User?Current non-smoker ?Tobacco use other than smoking?Are you an other tobacco user??No ???Drugs/Alcohol:?Drugs?Have you used drugs other than those for medical reasons in the past 12 months??No ?Alcohol Screen?Did you have a drink containing alcohol in the past year??Yes ?Points?0 ?Interpretation?Negative ???Miscellaneous:?Caffeine: yes, 3-5 cups per day. ?Children: yes, 2. ?Exercise: yes, walking, gym. ?Marital status: . ?Occupation: Lease Operator. * Medications:?TakingSimvastat in Levothyroxine Sodium Medication List reviewed and reconciled with the patientTaking Simvastatin Taking Levothyroxine Sodium Medication List reviewed and reconciled with the patient * Allergies:?yes[Allergies Lilliana ified] Objective: * Vitals:?Ht: 5 ft 5 in, Wt:15 6, BMI:25.96, Shoe size: 10, Ht-cm: 165.1 cm, Wt-k.76 kg. * Examination: ???General Examination: ?GENERAL APPEARANCE:?Reveals a pleasant, alert, well nourished, well- developed, well hydrated individual, who demonstrates proper attention to hygiene/body habitus, and is in no acute distress, Pt serves as own historian for office visit today.?ORIENTED:?person, place, and time.?Orthopedic: ?MUSCLE STRENGTH:?5/5 all groups in a symmetrical fashion, B/L.?GAIT ABNORMALITY:?Pronated , abducted angle and base of gate , B/L.?FOOT MORPHOLOGY:?normal , B/L.?BUNION:? Medially prominent 1st MPJ,(+) Pain on palpation,inflammation present medially,Lateral tracking 1st MPJ incompletely reducible, RIGHT.?TAILOR'S BUNION:?Prominent, painful, inflamed 5th MTH/MPJ , RIGHT.?DIGITAL DEFORMITIES:?Digital contracture, PIPJ, 2-5 B/L, incompl-reducible with WB, or to push-up test, no over, nor underlapping.?FOOTWEAR:? shoe gear properties exacerbate patients foot/toe deformity.?Neurological: ?TINEL'S COMPRESSION:? Negative, Saphenous nerve distribution, Right.?Vascular: ?DP PULSES:?2/4, B/L.?PT PULSES:?2/4, B/L.?CAPILLARY FILL TIME:?immediate, all digits, B/L.?SKIN TEMPERTURE GRADIENT OF THE LOWER EXTERMITIES:?normal, warm to cool, proximal to distal, B/L, B/L.?HAIR GROWTH/TEXTURE/ELASTICITY/TURGOR:?normal, B/L.?PIGMENTATION:?normal, B/L.?X-Rays - IMAGING REPORT: ?Clinical Indication(s):? Evaluate Biomechanical Deformity , Evaluate Biomechanical Deformity.?Views:? AP, LAT, MO, RIGHT , 3 views of Foot, AP, LO, MO , B/L.?Findings:?normal bone and soft tissue density consistent for patients age and sex?.?Digits:?show asymmetrical joint space narrowing at the PIPJ consistent with clinical finding of hammertoe deformity, show enlarged/hypertrophied phalangeal head(s) consistent for clinical finding of hammertoe deformity.?HAV:?increased First Intermetatarsal angle and Hallux Abductus angle consistent with Bunion deformity noted, hypertrophy of the dorsal and medial 1st MTH without subchondral cyst.?Fracture:?Negative fractures identified?.?Dermatologic: ?SKIN FINDINGS:?Skin exam reveals normal color, texture, elasticity, and turgor. There are no masses, nor excrescences. The interspaces are clear, B/L.? Assessment: * Assessment: 1.?Pain in right foot - M79. 671?2.?Hallux valgus (acquired), right foot - M20.11 (Primary)?3.?Pain in right ankle and joints of right foot - M25.571?4.?Bursitis of right foot - M77.51?5.?Pain in right toe(s) - M79.674?6.?Other hammer toe(s) (acquired), right foot - M20.41?7.?Pain in left toe(s) - M79.675?8.?Other hammer toe(s) (acquired), left foot - M20.42? Plan: * Treatment: 2.?Pain in left toe(s)?Imaging: X ray : Foot, left 3V?See Examination above * Procedure Codes:?45386 X-RAY EXAM OF RIGHT FOOT 3V, Modifiers: 26 , [id number] X- RAY EXAM OF LEFT FOOT 3V, Modifiers: 26 , LT * Preventive Medicine:? ??Counseling:?Discussion:?-04: Office or other outpatient visit for the evaluation and management of a new patient, which required a medically appropriate history and/or examination and MODERATE level of DECISION MAKING for: 1 OR MORE CHRONIC PROBLEM(S) THATS WORSENING, 2 STABLE CHRONIC PROBLEMS, A NEWLY DIAGNOSED PROBLEM WITH UNCERTAIN PROGNOSIS, AN ACUTE COMPLICATED INJURY WITH MULTIPLE TREATMENT OPTIONS, OR AN ACUTE PROBLEM WITH ACCOMPANYING SYSTEMIC SYMPTOMS, THAT POSE(S) A MODERATE RISK OF MORBIDITY. THIS CONDITION MAY ALSO INCLUDE RX DRUG MANAGEMENT, OR A DECISON FOR MINOR SURGERY. The visit on the day of the encounter encompassed interpreting the data and educating the patient as to the nature of their condition, treatment options available according to their individual PMH, meds, allergies, and overall health/living conditions, as well as any potential risks or complications that may occur from a failure to adhere to, and participate in, the recommended course of therapy. The discussion included a complete verbal, and/or written explanation of the examination results, any x-rays taken, the proposed diagnosis, and outline of the treatment plan. A schedule for future care needs was also explained. The patient verbalized an understanding of the instructions at this time and agreed to be an active participant in their treatment. If the patient should think of any questions or concerns after the visit, I have encouraged the patient to call the office.?Digital Treatment:?HT- I explained to the patient the possible etiologies of Hammertoes, including genetics/foot type/shoegear/activity level/exercise routine and the risks/benefits of all the different treatment options for their pain including: No treatment at all, Rest, Ice, New/supportive/wider/deeper Shoegear, Digital Padding/Strapping/Taping/Bracing/Gel protective sleeves, Foot/Ankle AFO Bracing, Stretching exercises, Deep Tissue Massage, Arch support/shoe inserts with splay metatarsal padding, and Custom orthoses. I insisted that any digital devices be removed daily and not worn overnight for safety. The patient is to carefully examine the toes daily for any skin irritation while using any splinting or padding device. The advantages and disadvantages of each option were discussed and the patients questions re: shoegear, padding, custom vs prefabricated inserts, activity level, and consistency in home treatment regimens for optimal success were answered to their verbally confirmed satisfaction, HV - I explained to the patient the risks/benefits of all the different treatment options for their pain including: No treatment at all, Rest, Ice, New/supportive/wider/deeper Shoegear, Digital Padding/Strapping/Taping/Bracing/Gel protective sleeves, Foot/Ankle AFO Bracing, Stretching exercises, Deep Tissue Massage, Arch support/shoe inserts with splay metatarsal padding, and Custom orthoses. I insisted that any digital devices be removed daily and not worn overnight for safety. The patient is to carefully examine the toes daily for any skin irritation while using any splinting or padding device. The advantages and disadvantages of each option were discussed and the patients questions re: shoegear, padding, custom vs prefabricated inserts, activity level, and consistency in home treatment regimens for optimal success were answered to their verbally confirmed satisfaction, Recomm, rest, ice, proper shoegear, padding, orthotics, anti-inflammatories or tylenol as tolerated, topical analgesics, cortisone injections.?Podiatric Surgery Counseling:?Surgical procedures to treat the patients foot problem were discussed. We reviewed the risks of the procedure (described below) vs not having the procedure (persistent pain, deformity, risk for skin ulceration/infection, loss of toe). We discussed the potential procedure complications including, but not limited to: pain, swelling, bleeding, scarring, numbness, infection, delayed/non healing, floppy/unstable/shorthened toe, recurrence, failure of the procedure, overcorrection leading to plantarflexed/downward positioned toe, recurrence, need for further surgery, as well as the possibility for loss of the toe itself. We discussed the use of IV/Local anesthesia, and the usual post-op course for healing. No guarentees were given. The patient verbally indicated a full understanding of the above conversation, and any other of their questions were answered to their satisfaction, Pt deferred any surgery at the present time.? * Follow Up:?prn * Images: * Sign off status: Completed true * Provider:?Lis Palacios DPM Date:?2023 Generated for Sylvia sherman/Cedrick/Henry on:?11/27/2024 07:33 AM EDT History and Physical Notes * HPI (History of Present Illness) Category Sub-Category Detail Notes Category Not es Toe pain Nature: tenderness Location: B/L feet Duration: several months Course: worse Aggravated by: shoes, any pressure Treatments: rest/alter normal da jim activity, change in shoes Foot Pain Location: Inside, Great toe joint, RIG HT Duration: several months Course: worse Aggravated: any pressure Treatments: rest/alter normal da jim activity Examination Category Sub-Category Detail Notes Category Not es Neurological TINEL'S COMPRESSION: Negative, S aphenous nerve distribution, Right Dermatologic SKIN FINDINGS: Skin exam reveal s normal color, texture, elasticity, and turgor. There are no masses, nor excrescences. The interspaces are clear, B/L Orthopedic GAIT ABNORMALITY: Pronated , abd ucted angle and base of gate , B/L FOOT MORPHOLOGY: normal , B/L BUNION: Medially prominent 1 st MPJ, (+) Pain on palpation, inflammation present medially, Lateral tracking 1st MPJ incompletely reducible, RIGHT FOOTWEAR EVALUATION: shoe gear propertie s exacerbate patients foot/toe deformity DIGITAL DEFORMITIES: Digital contracture , PIPJ, 2-5 B/L, incompl-reducible with WB, or to push-up test, no over, nor underlapping TAILOR'S BUNION: Prominent, painful, inflamed 5th MTH/MPJ , RIGHT MUSCLE STRENGTH: 5/5 all groups in a symmetrical fashion, B/L General Examination GENERAL APPEARANCE: Reveals a pleasant, alert, well nourished, well-developed, well hydrated individual, who demonstrates proper attention to hygiene/body habitus, and is in no acute distress, Pt serves as own historian for office visit today ORIENTED: person, place, and t juan Vascular DP PULSES (B): 2/4, B/L PT PULSES (B): 2/4, B/L CAPILLARY FILL TIME: immediate, all digi ts, B/L TEMPERTURE GRADIENT (C): normal, warm to cool, proximal to distal, B/L, B/L TROPHIC CONDITION-TEXTURE/ELASTICITY/TURGOR/HAIR GROWTH (B): normal, B/L PIGMENTATION: normal, B/L X-Rays - IMAGING REPORT Findings: normal b one and soft tissue density consistent for patients age and sex Fracture: Negative fractures i dentified Digits: show asymmetrical pankaj int space narrowing at the PIPJ consistent with clinical finding of hammertoe deformity, show enlarged/hypertrophied phalangeal head(s) consistent for clinical finding of hammertoe deformity HAV: increased First Inte rmetatarsal angle and Hallux Abductus angle consistent with Bunion deformity noted, hypertrophy of the dorsal and medial 1st MTH without subchondral cyst Views: AP, LAT, MO, RIGHT , 3 views of Foot, AP, LO, MO , B/L Clinical Indication(s): Evaluate Biomech anical Deformity , Evaluate Biomechanical Deformity
--- OUTSIDE RECORDS SUMMARY | 2024-11-27 07:34 | XMS_ITS ---
Author Organization [facility] Address [address] [place] [address] Care Team Providers Care Insole Rounder Name Role Phone Dina Machado Primary Care Provider Unavailabl e Black, Lis Unavailable [phone] REASON FOR VISIT NETWORK OPERATIONS PROJECT MANAGER PPWK Entered Encounters Encounter Location Date Provider Diagnosis [facility] [address] [place] [address] 01/14/2024 Lis Black Plan Of Treatment No Information Progress Notes * Aziza OSCARneDOB:1965 (58 yo F)Acc No.[id number]:01/14/2024 Patient:?Roxie Oscar :1965???Age:58 Y???Sex:Female Address:[address] [place] [address] * true * Date:? Generated for Printi lane/Cedrick/eTransmitting on:?11/27/2024 07:34 AM EDT
[2024-11-27 11:06] LABS: MANUAL DIFF FLAG NO
[2024-11-27 11:28] LABS: Basophils Absolute Auto 0.1 X10*3/uL (0.0-0.2); Basophils Percent Auto 1.1 % (0-2); Eosinophils Absolute Auto 0.3 X10*3/uL (0.0-0.4); Eosinophils Percent Auto 4.2 % (0-4); Hemoglobin 13.8 g/dl (12.0-16.0); Imm Gran Abs Auto 0.02 X10*3/uL (0.00-0.03); Imm Gran Pct Auto 0.3 % (0.0-0.4); Lymphocytes Absolute Auto 1.9 X10*3/uL (1.2-4.9); Mean Corpuscular HGB Conc 32.9 g/dl (31.0-35.0); Mean Corpuscular Hemoglobin 28.4 pg (27.0-33.0); Mean Corpuscular Volume 86.4 fL (80.0-98.0); Mean Platelet Volume 9.1 fL (9.4-12.3); Monocytes Absolute Auto 0.3 X10*3/uL (0.1-1.2); Monocytes Percent Auto 4.5 % (2-11); Neutrophils Absolute Auto 4.1 x10*3/uL (2.0-8.3); Neutrophils Percent Auto 61.9 % (45-73); Platelet Count 314 X10*3/uL (160-400); Red Blood Count 4.86 X10*6/uL (4.20-5.50); Red Cell Distribution Width 13.2 % (11.0-16.0); White Blood Count 6.6 X10*3/uL (4.8-10.8)
[2024-11-27 11:44] LABS: Alanine Aminotransferase 26 U/L (0-31); Anion Gap 11 (12-20); Aspartate Amino Transferase 28 U/L (5-31); Bilirubin Total 0.3 mg/dL (0.0-1.0); Blood Urea Nitrogen 19 mg/dL (9-16); Calcium 9.3 mg/dL (8.4-10.2); Carbon Dioxide 23 mmol/L (22-29); Chloride 111 mmol/L (96-108); Cholesterol 210 mg/dL (<200); Estimated Glomerular Filt Rate > 60; Glucose Random 102 mg/dL (60-115); HDL Cholesterol 64 mg/dL (>40); LDL Cholesterol Calculated 130 mg/dL (<100); Potassium 4.3 mmol/L (3.3-5.1); Sodium 141 mmol/L (135-145); Total Protein 7.1 g/dL (6.5-8.0); Triglycerides 80 mg/dL (<150)
[2024-11-27 12:00] LABS: Thyroid Stimulating Hormone 0.62 uIU/mL (0.32-4.0); Vitamin D 25-OH Total 33.5 ng/mL (>30)
[2024-11-27 12:07] LABS: Folate 12.7 ng/mL (> or = 4.0); Vitamin B12 494 pg/mL (200-900)
[2024-11-27 19:46] LABS: Alkaline Phosphatase 63 U/L (39-117)
== END 2024-11-27 07:33 | disposition home or self-care (01) ==
LOC: HO.WFDLDS 07:32
PROVIDERS: Visit Provider Internal Medicine
DX: E78.00 Pure hypercholesterolemia, unspecified (principal)
CPT/HCPCS: 36415; 80053; 80061; 82306; 82607; 82746; 84439; 84443; 85025

== ENCOUNTER 2025-07-15 06:39 | Outpatient (REF) | payer OTHER, SELFPAY ==
--- OUTSIDE RECORDS SUMMARY | 2025-07-15 06:42 | XMS_ITS | Patient Health Record ---
Author Organization [facility] Address [address] [place] [address] Care Team Providers Care Bobbin Stripper Name Role Phone Dina Machado Primary Care Provider Unavailabl e Black, Lis Unavailable [phone] Reason For Referral No Information Medications Medication SIG (Take, Route, Fr equency, [...] Problem Acquired hammer toe of right foot (3706856609331802) Other hammer toe(s) (acquired), right foot (M20.41) Active confirmed Problem Acquired hammer toe of left foot (1073894108018741) Other hammer toe(s) (acquired), left foot (M20.42) Active confirmed Problem Acquired hallux valgus (57529055) Hallux valgus (acquired), right foot (M20.11) Active confirmed Problem Localized, primary osteoarthritis of the ankle and/or foot (540855234) Arthritis of joint of lesser toe, left (M19.072) Active confirmed Problem Localized, primary osteoarthritis of the ankle and/or foot (610228945) Arthritis of joint of lesser toe, right (M19.071) Active confirmed Plan Of Treatment No Information Insurance Providers Payer Name Payer Address Payer Phone Subscriber Number Group Number Insured Name Patient Relationship to Insured Coverage Start Date Coverage End Date [place] [address] [place] [phone] [id number] Roxie Dawn Self - patient is the insured Medical (General) History Medical History History ICD Code covid-19 thyroid Chicken pox Surgical History Surgery Date(Month/Year) laser eye surgery
[2025-07-15 06:52] LABS: MANUAL DIFF FLAG NO
[2025-07-15 07:14] LABS: Hematocrit 44.3 % (37.0-47.0); Hemoglobin 14.7 g/dl (12.0-16.0); Imm Gran Abs Auto 0.02 X10*3/uL (0.00-0.03); Imm Gran Pct Auto 0.3 % (0.0-0.4); Lymphocytes Absolute Auto 2.5 X10*3/uL (1.2-4.9); Mean Corpuscular HGB Conc 33.2 g/dl (31.0-35.0); Mean Corpuscular Hemoglobin 29.1 pg (27.0-33.0); Mean Corpuscular Volume 87.7 fL (80.0-98.0); NRBC Abs Auto 0.000 X10*3/uL (0.0-0.012); NRBC Pct Auto 0.0 /100WBC (0.0-0.2); Platelet Count 307 X10*3/uL (160-400); Red Blood Count 5.05 X10*6/uL (4.20-5.50); White Blood Count 5.9 X10*3/uL (4.8-10.8)
[2025-07-15 07:46] LABS: Appearance Urine Clear; Glucose Urine UA Negative (Negative); PH 5.5 (5.0-9.0); Specific Gravity - Urine 1.020 (1.005-1.025); UMIC TRIGGER UACC YES
[2025-07-15 07:59] LABS: Alanine Aminotransferase 33 U/L (0-31); Albumin Level 4.7 g/dL (3.5-5.0); Alkaline Phosphatase 60 U/L (39-117); Anion Gap 11 (12-20); Aspartate Amino Transferase 29 U/L (5-31); Blood Urea Nitrogen 22 mg/dL (9-16); Calcium 9.7 mg/dL (8.4-10.2); Carbon Dioxide 27 mmol/L (22-29); Chloride 108 mmol/L (96-108); Cholesterol 261 mg/dL (<200); Estimated Glomerular Filt Rate > 60; HDL Cholesterol 71 mg/dL (>40); Potassium 4.2 mmol/L (3.3-5.1); Sodium 142 mmol/L (135-145); Total Protein 7.6 g/dL (6.5-8.0); Triglycerides 86 mg/dL (<150)
[2025-07-15 08:00] LABS: Free T4 (Free Thyroxine) 1.02 ng/dL (0.71-1.85); Thyroid Stimulating Hormone 1.60 uIU/mL (0.32-4.0)
[2025-07-15 08:10] LABS: Folate 12.2 ng/mL (> or = 4.0); Vitamin B12 504 pg/mL (200-900)
[2025-07-15 08:10] LABS: UACC Culture Trigger YES
== END 2025-07-15 06:40 | disposition home or self-care (01) ==
LOC: HO.LAB 06:39
PROVIDERS: PCP Internal Medicine; Visit Provider Internal Medicine
DX: R73.01 Impaired fasting glucose (principal); E78.00 Pure hypercholesterolemia, unspecified; Z13.21 Encounter for screening for nutritional disorder
CPT/HCPCS: 36415; 80053; 80061; 81001; 82306; 82607; 82746; 83036; 84439; 84443; 85025; 87086

== ENCOUNTER 2025-07-16 13:32 | Outpatient (AMB) | payer OTHER, SELFPAY ==
--- NOTE | 2025-07-16 13:42 | A.OFFPC_ITS ---
Vital Signs 07/16/25 13:45 Height 5 ft 5 in Weight 165 lb 8 oz BMI 27.5 BP 120/74 Blood Pressure Location Lt brachial Position Sitting Pulse 65 Pulse Source Pulse Oximeter Temp 97.3 F Temp Source Temporal Artery Scan Pulse Oximetry (%) 99 Oxygen Delivery Method Room Air Intake Visit Reasons: annual exam Intake Note: Patient is here today for a physical. Health Care Facility Administrator Required: No Dining Services Director: Not Required per policy Accompanied by: Self / Same As Patient Allergies clarithromycin (From Biaxin) Allergy (Intermediate, Verified 07/16/25 13:43) diarrhea oxycodone (From Tylox) Adverse Reaction (Intermediate, Verified 07/16/25 13:43) vomiting Medication List - Last Reconciled 07/16/25 by Vane Donis MD budesonide 32 mcg/actuation (Rhinocort Allergy) 2 sprays intranasal DAILY cetirizine (Zyrtec) 10 mg PO DAILY levothyroxine 125 mcg PO DAILY melatonin 3 mg PO BEDTIME PRN yowyibnsaaiq-Vy-uarl-minerals tabs PO polyethylene glycol 3350 17 grams PO DAILY PRN rosuvastatin 5 mg PO DAILY simethicone (Gas Relief (simethicone)) 125 mg PO BID-QID PRN varicella-zoster gE vac,2 of 2 (Shingrix gE Antigen Component) 0.5 mL IM ONCE Tobacco use date assessed: 07/16/25 Dental Screening Dental Screen Date: 07/16/25 Did you have a dental visit in the last 12 months?: Yes Did you have a dental problem in the last 6 months where you did not have access to dental care?: No Was dental information given to patient?: Patient has dentist HPI HPI Comments History of Present Illness Details The patient is a 59 year old female presenting for an annual physical examination. Medical history remarkable for hypothyroidism, hypercholesterolemia, generalized anxiety disorder, basal cell carcinoma of nose. She reports waking up with gas daily for the past year. She also experiences intermittent bloating, which she associates with eating salads and beans, and reports constipation, characterized by not having a bowel movement for one to two days and occasional straining. uses prune juice as needed for constipation which helps. Denies heartburn, nausea, vomiting, diarrhea, hematochezia or melena. She was started on rosuvastatin 5 mg yesterday for hyperlipidemia. Regarding healthcare maintenance, patient had colonoscopy in August 2018, per patient had multiple benign polyps and recommended follow up. She also reports she completed a Cologuard test in the summer of 2024 which was negative per patient. Mammogram in April 2025 was negative, Pap smear in April 2023 was negative. [facility] Medical History (Updated 07/08/24 @ 12:52 by Dina Machado MD) Colon cancer screening Raynauds disease Hypercholesterolemia Hypothyroid Surgical History No pertinent past surgical history Family History Father CAD (coronary artery disease) Mother Myocardial infarction Maternal Aunt Renal cancer Social History Housing: House Alcohol intake: current Alcohol intake frequency: a few times a week Comment: 3 days weekend 2-3 drinks Patient Tobacco Use Status: Never used Tobacco Tobacco use type: Cigarette e-Cigarette/Vaping Use: Never Used Second Hand Smoke Exposure: No service: No Current occupational status: employed Cognitive needs: No Hearing needs: No Vision needs: Yes (wears contacts) Questionnaire PHQ-9 Over the last 2 weeks, how often have you been bothered by any of the following problems? 1. Little interest or pleasure in doing things: not at all 2. Feeling down, depressed, or hopeless: not at all 3. Trouble falling or staying asleep, or sleeping too much: not at all 4. Feeling tired or having little energy: not at all 5. Poor appetite or overeating: not at all 6. Feeling bad about yourself - or that you are a failure or have let yourself or your family down: not at all 7. Trouble concentrating on things, such as reading the newspaper or watching television: not at all 8. Moving or speaking so slowly that other people could have noticed. Or the opposite - being so fidgety or restless that you have been moving around a lot more than usual: not at all 9. Thoughts that you would be better off or of hurting yourself in some way: not at all Total score: 0 Depression Screening Interpretation: Negative Depression Screening Done: Yes Source: Developed by Drs. David Lowe, Yojana Moon, David Jaquez and colleagues, with an educational alma from [employer]. Thrive Questionnaire Date Thrive assessed: 07/16/25 I am a: Patient What is your living situation today?: I have a steady place to live Within the past 12 months, did the food you bought not last and you didn't have the money to get more?: Never true Within the past 12 months, did you worry whether your food would run out before you got money to buy more?: Never true Do you have trouble paying for medicines?: No Do you have trouble getting transportation to medical appointments?: No Do you have trouble paying your heating and electricity bill?: No Do you have trouble taking care of your child, family member or friend?: No Do you have trouble with day-to-day activities such as bathing, preparing meals, shopping, managing finances, etc.?: No Are you currently unemployed and looking for a job?: No Are you interested in more education?: No Please select the resources that you would like help with: None Currently or been in a relationship where the following occur: No concerns reported THRIVE Score: 0 AUDIT C Alcohol Use Questionnaire (AUDIT-C) 1. How often do you have a drink containing alcohol?: 2-3 times a week 2. How many drinks containing alcohol do you have on a typical day when you are drinking?: 1 or 2 3. How often do you have six or more drinks on one occasion?: Never Total Score: 3 AFIA-7 AMB Questionnaire AFIA-7 Date AFIA - 7 assessed: 07/16/25 Feeling nervous, anxious, or on edge: 0 = Not at all Not being able to stop or control worryin = Not at all Worrying too much about different things: 0 = Not at all Trouble relaxin = Not at all Being so restless that it is hard to sit still: 0 = Not at all Becoming easily annoyed or irritable: 0 = Not at all Feeling afraid as if something awful might happen: 0 = Not at all Total AFIA-7 score (0-4 normal; 5-9 mild; 10-14 moderate; 15-21 severe): 0 Source: Developed by Yojana Mosqueda, David Jaquez and colleagues, with an educational alma from [employer]. Physical exam (Primary Care) Vital Signs: Last Vital Signs Temp 97.3 F 07/16/25 13:45 Pulse 65 07/16/25 13:45 BP 120/74 07/16/25 13:45 Pulse Ox 99 07/16/25 13:45 Oxygen Delivery Method Room Air 07/16/25 13:45 General: Well-appearing, alert, oriented ?3, in no acute distress. HEENT: Normocephalic, atraumatic, PERRLA, EOMI, no scleral icterus. External ears normal, tympanic membranes intact bilaterally, no erythema or effusion. Nares patent, normal mucosa pink, no discharge. No oral lesions, or pharyngeal erythema. Neck Supple. Cardiovascular: RRR, S1-S2 appreciated, no murmurs, rubs or gallops. Respiratory: Lungs clear to auscultation bilaterally, no wheezes, rales or rhonchi. Abdomen: Soft, nontender, nondistended. Normoactive bowel sounds. MSK: Normal range of motion in all extremities, no joint swelling or deformity. Neurologic: Alert and oriented X3, cranial nerves II?XII grossly intact, sensation and strength intact in bilateral lower and upper extremities. BMI result Body Mass Index 27.5 Tobacco/Smoking Status: Tobacco use Status Tobacco use date assessed 07/16/25 07/16/25 13:50 Patient Tobacco Use Status Never used Tobacco 07/16/25 13:50 Tobacco use type Cigarette 07/16/25 13:50 e-Cigarette/Vaping Use Never Used 07/16/25 13:50 PHQ-9: PHQ-9 Score PHQ-9: Total score 0 07/16/25 14:17 Depression Screening Interpretation: Negative Thrive Assessment: Date of Thrive Assessment Date Thrive assessed 07/16/25 07/16/25 13:50 Currently or been in a relationship where the following occur: No concerns reported Office Procedures Flu Questionnaire Does the patient have a severe egg allergy?: No Does the patient have severe life threatening allergies?: No Does the patient have a fever or illness today?: No Has the patient ever had Guillain-Colony Syndrome?: No Has the patient ever had any past reaction to a flu shot?: No Immunizations Fluarix [id number] (PF) 45 mcg (15 mcg x 3)/0.5 mL IM syringe Performing Provider: Vane Donis MD Performing Location: [facility] [place] [facility] Administered by: Mikayla Husain LPN on 07/16/25 13:50 Dose Route Admin Location Dispensed Lot Number Expiration Date NDC Plant Anatomist 0.5 mL IM Left Deltoid 0.5 mL [id number] 02/08/26 [id number] [email or web address] VIS Given Date VIS Provided VIS Publication Date 07/16/25 Single Vaccine 24 Eligibility Eligibility Date Funding Source Not [facility] Eligible 07/16/25 Private Coding Level of Care Code Est Pt Level 3 (05195) Est Pt Prev Care 40-64y(35463) Diagnoses Annual physical exam Z00.00 Bloating R14.0 Encounter for immunization Z23 Hypothyroidism, unspecified type E03.9 Hypothyroidism type: unspecified Assessment & Plan Assessment & Plan (1) Annual physical exam: Code(s): Z00.00 - Encounter for general adult medical examination without abnormal find ings Category: Medical Plan: patient had colonoscopy in August 2018, per patient had multiple benign polyps and recommended follow up. She also reports she completed a Cologuard test in the summer of 2024 which was negative per patient. Mammogram in April 2025 was negative, Pap smear in April 2023 was negative. -mammogram 05/06/2025 - negative, BI-RADS 1 -Pap smear on 05/01/2023 - NILM, neg HPV - Immunization: Up-to-date with Tdap (05/2017), received flu shot today, due for shingles vaccine- ordered (2) Bloating: Code(s): R14.0 - Abdominal distension (gaseous) Plan: patient presenting with increased flatulence, bloating and intermittent constipation. will Test for H pylori. her symptoms could be related to constipation it can cause flatulence and bloating. Patient counseled on lifestyle modification including increasing water intake and fiber intake. she needs to have regular bowel movements. Plan Start MiraLax to take as needed for constipation Start simethicone to take as needed for gas pain (3) Encounter for immunization: Code(s): Z23 - Encounter for immunization Plan: patient received flu vaccine today in clinic. due for Shingles vaccine, prescription sent to pharmacy (4) Hypothyroid: Comment: Goiter seeing Dr. Ortega June 2015 Code(s): E03.9 - Hypothyroidism, unspecified Category: Medical Qualifiers: Hypothyroidism type: unspecified Qualified Code(s): E03.9 - Hyp othyroidism, unspecified Plan: Patient on levothyroxine one twenty five mcg daily, TSH and T4 from 07/16/2025 within normal limits. Patient mentioned that she takes her levothyroxine pill with coffee every morning. She was educated on the importance of taking her levothyroxine on an empty stomach, at least 30 minutes before food or coffee, to ensure proper absorption. Orders: Orders Influenza [id number] Immunization Today Z23 - Encounter for immunization H pylori Ag Stool Today R14.0 - Abdominal distension (gaseous) Medications: New varicella-zoster gE vac,2 of 2 (Shingrix gE Antigen Component) 0.5 mL IM ONCE 1 ea 1RF polyethylene glycol 3350 17 grams PO DAILY PRN 119 grams 0RF constipation simethicone (Gas Relief (simethicone)) 125 mg PO BID-QID PRN 60 tabs 1RF abdominal distention
[2025-07-16 13:45] VITALS: BP 120/74; PULSE 65; TEMP 36.3; O2SAT 99; BMI 27.5
--- OUTSIDE RECORDS SUMMARY | 2025-07-16 17:39 | XMS_ITS ---
Author Name Nandini Owens Address Unknown Organization [facility] Care Team Providers Care Youth Corrections Officer Name Role Phone Unavailable Primary Care Physician Unavailab le History Of Present Illness No Data Allergies, Adverse Reactions, Alerts Substance RxNorm Reaction(s) Severity Status Start Da te Biaxin 20360920 GI upset unspecified active Medications Medication Generic Name RxNorm Strength Strength Unit Route Dose Dose Form Frequency Date Started Date Ended Status Indication Sig metronidazo le metronid azole 971399 0.75 % Topica l cream Qam to BID 02/08/20 20 suspend ed Appl y once , incr easi ng to twic e harriet y to face for yanni cea if well -nir erat ed; non- come doge mike mois turi zer 10 mins afte r with SPF 30+ Adults Multivitami n multivit samayoa-min -iron-FA -vit K 18 mg iron-400 mcg-25 mcg Oral 1 table t QD active Levoxyl levothyr oxine 125 mcg Oral 1 table t QD active Synthroid levothyr oxine 860013 100 mcg Oral table t suspend ed Zyrtec cetirizi ne 10 mg Oral 1 table t QD active Flonase NULL 04/04/20 15 active MetroNIDAZO LE NULL 04/04/20 15 active Synthroid NULL 04/04/20 15 suspend ed Problems Problem Code Type Status Date of Diagnosis Date of Resolution Rosacea (disorder) 964587591(S NOMED) Problem active Melanocytic nevus (disorder) 074347800(S NOMED) Diagnosis active 07/08/2018 Benign neoplasm of skin of upper limb and shoulder (disorder) 885713181(S NOMED) Diagnosis active 02/01/2015 Encounter for procedure for purposes other than remedying health state, unspecified Z41.9(ICD-1 0) Diagnosis active 07/25/2019 Encounter for procedure for purposes other than remedying health state, unspecified Z41.9(ICD-1 0) Diagnosis active 08/07/2019 Encounter for procedure for purposes other than remedying health state, unspecified Z41.9(ICD-1 0) Diagnosis active 08/07/2019 Encounter for procedure for purposes other than remedying health state, unspecified Z41.9(ICD-1 0) Diagnosis active 08/22/2019 Encounter for procedure for purposes other than remedying health state, unspecified Z41.9(ICD-1 0) Diagnosis active 09/05/2019 Encounter for procedure for purposes other than remedying health state, unspecified Z41.9(ICD-1 0) Diagnosis active 09/26/2019 Neoplasm of uncertain behavior of skin D48.5(ICD-1 0) Diagnosis active 02/08/2020 Other rosacea L71.8(ICD-1 0) Diagnosis active 02/08/2020 Other rosacea L71.8(ICD-1 0) Diagnosis active 03/29/2020 Melanocytic nevi, unspecified D22.9(ICD-1 0) Diagnosis active 03/29/2020 Other seborrheic keratosis L82.1(ICD-1 0) Diagnosis active 03/29/2020 Hemangioma of skin and subcutaneous tissue D18.01(ICD- 10) Diagnosis active 03/29/2020 Other benign neoplasm of skin, unspecified D23.9(ICD-1 0) Diagnosis active 03/29/2020 Other melanin hyperpigmentation L81.4(ICD-1 0) Diagnosis active 03/29/2020 Epidermal cyst L72.0(ICD-1 0) Diagnosis active 03/29/2020 Encounter for procedure for purposes other than remedying health state, unspecified Z41.9(ICD-1 0) Diagnosis active 04/01/2020 Encounter for procedure for purposes other than remedying health state, unspecified Z41.9(ICD-1 0) Diagnosis active 04/01/2020 Encounter for procedure for purposes other than remedying health state, unspecified Z41.9(ICD-1 0) Diagnosis active 04/15/2020 Encounter for procedure for purposes other than remedying health state, unspecified Z41.9(ICD-1 0) Diagnosis active 04/23/2020 Basal cell carcinoma of skin of nose C44.311(ICD -10) Diagnosis active 04/26/2020 Other rosacea L71.8(ICD-1 0) Diagnosis active 06/01/2020 Epidermal cyst L72.0(ICD-1 0) Diagnosis active 06/01/2020 Other seborrheic keratosis L82.1(ICD-1 0) Diagnosis active 06/01/2020 Basal cell carcinoma of skin of other parts of face C44.319(ICD -10) Diagnosis active 06/01/2020 Basal cell carcinoma of skin of nose C44.311(ICD -10) Diagnosis active 06/22/2020 Encounter for procedure for purposes other than remedying health state, unspecified Z41.9(ICD-1 0) Diagnosis active 08/06/2020 Encounter for procedure for purposes other than remedying health state, unspecified Z41.9(ICD-1 0) Diagnosis active 08/20/2020 Encounter for procedure for purposes other than remedying health state, unspecified Z41.9(ICD-1 0) Diagnosis active 09/24/2020 Encounter for procedure for purposes other than remedying health state, unspecified Z41.9(ICD-1 0) Diagnosis active 09/24/2020 Encounter for procedure for purposes other than remedying health state, unspecified Z41.9(ICD-1 0) Diagnosis active 10/07/2020 History of malignant neoplasm of skin (situation) 012400012(S NOMED) Diagnosis active 11/21/2020 Neoplasm of uncertain behavior of skin (disorder) 42682248(SN OMED) Diagnosis active 11/21/2020 Rosacea (disorder) 457307803(S NOMED) Diagnosis active 11/21/2020 Melanocytic nevus (disorder) 030245609(S NOMED) Diagnosis active 11/21/2020 Seborrheic keratosis (disorder) 413371970(S NOMED) Diagnosis active 11/21/2020 Hemangioma of skin and subcutaneous tissue (disorder) 788045156(S NOMED) Diagnosis active 11/21/2020 Benign neoplasm of skin (disorder) 94294094(SN OMED) Diagnosis active 11/21/2020 Disorder of pigmentation (disorder) 800996676(S NOMED) Diagnosis active 11/21/2020 Epidermoid cyst of skin (disorder) 666963630(S NOMED) Diagnosis active 11/21/2020 Patient encounter status (finding) 292988861(S NOMED) Diagnosis active 12/24/2020 Patient encounter status (finding) 676525232(S NOMED) Diagnosis active 12/24/2020 Actinic keratosis (disorder) (S NOMED) Diagnosis active 05/23/2021 Rosacea (disorder) 884117598(S NOMED) Diagnosis active 05/23/2021 History of malignant neoplasm of skin (situation) 063075110(S NOMED) Diagnosis active 05/23/2021 Melanocytic nevus of lower limb (disorder) 431608398(S NOMED) Diagnosis active 05/23/2021 Seborrheic keratosis (disorder) 660374982(S NOMED) Diagnosis active 05/23/2021 Hemangioma of skin and subcutaneous tissue (disorder) 485147746(S NOMED) Diagnosis active 05/23/2021 Disorder of pigmentation (disorder) 960782104(S NOMED) Diagnosis active 05/23/2021 Epidermoid cyst of skin (disorder) 705916091(S NOMED) Diagnosis active 05/23/2021 Patient encounter status (finding) 773151215(S NOMED) Diagnosis active 12/30/2021 Patient encounter status (finding) 957609478(S NOMED) Diagnosis active 01/20/2022 Actinic keratosis (disorder) (S NOMED) Diagnosis active 01/26/2022 Neoplasm of uncertain behavior of skin (disorder) 12612276(SN OMED) Diagnosis active 01/26/2022 Melanocytic nevus of lower limb (disorder) 158771994(S NOMED) Diagnosis active 01/26/2022 Rosacea (disorder) 178486322(S NOMED) Diagnosis active 01/26/2022 Hemangioma of skin and subcutaneous tissue (disorder) 061541867(S NOMED) Diagnosis active 01/26/2022 Disorder of pigmentation (disorder) 022254064(S NOMED) Diagnosis active 01/26/2022 Epidermoid cyst of skin (disorder) 676207018(S NOMED) Diagnosis active 01/26/2022 Seborrheic keratosis (disorder) 882058986(S NOMED) Diagnosis active 01/26/2022 History of malignant neoplasm of skin (situation) 072112261(S NOMED) Diagnosis active 01/26/2022 Patient encounter status (finding) 872535458(S NOMED) Diagnosis active 06/30/2022 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) 484047983(S NOMED) Problem active Patient encounter status (finding) 418364372(S NOMED) Diagnosis active 07/12/2022 Patient encounter status (finding) 665462815(S NOMED) Diagnosis active 07/21/2022 Basal cell carcinoma of skin (disorder) 772139041(S NOMED) Problem active Patient encounter status (finding) 025357889(S NOMED) Diagnosis active 07/28/2022 Actinic keratosis (disorder) (S NOMED) Diagnosis active 07/31/2022 Neoplasm of uncertain behavior of skin (disorder) 49400052(SN OMED) Diagnosis active 07/31/2022 Disorder of pigmentation (disorder) 174660296(S NOMED) Diagnosis active 07/31/2022 History of hypertension (situation) 737738723(S NOMED) Problem active Actinic keratosis (disorder) (S NOMED) Problem active Rosacea (disorder) 146812375(S NOMED) Diagnosis active 02/06/2023 Epidermoid cyst of skin (disorder) 657333851(S NOMED) Diagnosis active 02/06/2023 Melanocytic nevus of trunk (disorder) 217427585(S NOMED) Diagnosis active 02/06/2023 Seborrheic keratosis (disorder) 797654526(S NOMED) Diagnosis active 02/06/2023 Hemangioma of skin and subcutaneous tissue (disorder) 577711718(S NOMED) Diagnosis active 02/06/2023 Disorder of pigmentation (disorder) 812084681(S NOMED) Diagnosis active 02/06/2023 History of malignant neoplasm of skin (situation) 139133089(S NOMED) Diagnosis active 02/06/2023 Actinic keratosis (disorder) (S NOMED) Diagnosis active 02/19/2024 Melanocytic nevus of trunk (disorder) 696944832(S NOMED) Diagnosis active 02/19/2024 Seborrheic keratosis (disorder) 221163181(S NOMED) Diagnosis active 02/19/2024 Epidermoid cyst of skin (disorder) 161946195(S NOMED) Diagnosis active 02/19/2024 Disorder of capillaries (disorder) 50727187(SN OMED) Diagnosis active 02/19/2024 Hemangioma of skin and subcutaneous tissue (disorder) 943280506(S NOMED) Diagnosis active 02/19/2024 Disorder of pigmentation (disorder) 113640974(S NOMED) Diagnosis active 02/19/2024 History of malignant neoplasm of skin (situation) 840569262(S NOMED) Diagnosis active 02/19/2024 Patient encounter status (finding) 815800208(S NOMED) Diagnosis active 04/16/2024 Patient encounter status (finding) 741599179(S NOMED) Diagnosis active 04/16/2024 Patient encounter status (finding) 499413013(S NOMED) Diagnosis active 04/29/2024 Patient encounter status (finding) 429849781(S NOMED) Diagnosis active 05/28/2024 Patient encounter status (finding) 792856551(S NOMED) Diagnosis active 06/03/2024 Patient encounter status (finding) 492438000(S NOMED) Diagnosis active 11/26/2024 Patient encounter status (finding) 582738020(S NOMED) Diagnosis active 12/03/2024 Patient encounter status (finding) 580293886(S NOMED) Diagnosis active 01/09/2025 Patient encounter status (finding) 218536754(S NOMED) Diagnosis active 02/06/2025 Patient encounter status (finding) 407475016(S NOMED) Diagnosis active 03/02/2025 Patient encounter status (finding) 316522721(S NOMED) Diagnosis active 03/06/2025 Patient encounter status (finding) 088223252(S NOMED) Diagnosis active 04/06/2025 Patient encounter status (finding) 314704639(S NOMED) Diagnosis active 04/29/2025 History of malignant neoplasm of skin (situation) 382197462(S NOMED) Diagnosis active 05/19/2025 Hemangioma of skin and subcutaneous tissue (disorder) 740240988(S NOMED) Diagnosis active 05/19/2025 Seborrheic keratosis (disorder) 507205802(S NOMED) Diagnosis active 05/19/2025 Disorder of pigmentation (disorder) 354277481(S NOMED) Diagnosis active 05/19/2025 Melanocytic nevus of trunk (disorder) 999202946(S NOMED) Diagnosis active 05/19/2025 Melanocytic nevus of left lower limb (disorder) 28660674696 9106(SNOMED ) Diagnosis active 05/19/2025 Patient encounter status (finding) 644058152(S NOMED) Diagnosis active 05/19/2025 Patient encounter status (finding) 188643626(S NOMED) Diagnosis active 05/27/2025 Patient encounter status (finding) 609771941(S NOMED) Diagnosis active 07/01/2025 Patient encounter status (finding) 463574639(S NOMED) Diagnosis active 07/15/2025 Results No data Encounters Service provided at [facility], [address] [place] [address] [id number]. Office phone number is [phone]. Office fax number is [phone]. Encounter Diagnosis Location Date / Time Type Disc harge Status Cosmetic (Z41.9) [facility] 07/15/2025 22:00:00 UTC Reason For Referral No data Procedures Procedure Date Documentation of current medications (pr ocedure) 07/15/2025 12:00 am UTC Documentation of current medications (pr ocedure) 07/01/2025 12:00 am UTC Documentation of current medications (pr ocedure) 05/28/2025 12:00 am UTC Destruction of premalignant skin lesion (procedure) 02/19/2024 12:00 am UTC Cryotherapy of skin lesion with liquid n itrogen (procedure) 07/31/2022 12:00 am UTC Mohs surgery (procedure) 06/22/2020 12:0 0 am UTC Shave biopsy (procedure) 02/08/2020 12:0 0 am UTC Documentation of past medical history (p rocedure) Documentation of past medical history (p rocedure) Documentation of past medical history (p rocedure) Documentation of past medical history (p rocedure) Documentation of past medical history (p rocedure) Documentation of past medical history (p rocedure) Documentation of past medical history (p rocedure) Documentation of past medical history (p rocedure) Documentation of past medical history (p rocedure) Documentation of past medical history (p rocedure) Documentation of past medical history (p rocedure) Documentation of past medical history (p rocedure) Documentation of past medical history (p rocedure) Documentation of past medical history (p rocedure) Documentation of past medical history (p rocedure) Documentation of past medical history (p rocedure) Documentation of past medical history (p rocedure) Documentation of past medical history (p rocedure) Documentation of past medical history (p rocedure) Documentation of past medical history (p rocedure) Documentation of past medical history (p rocedure) Documentation of past medical history (p rocedure) Documentation of past medical history (p rocedure) Documentation of past medical history (p rocedure) Documentation of past medical history (p rocedure) Documentation of past medical history (p rocedure) Documentation of past medical history (p rocedure) Documentation of past medical history (p rocedure) Documentation of past medical history (p rocedure) Documentation of past medical history (p rocedure) Documentation of past medical history (p rocedure) Documentation of past medical history (p rocedure) Documentation of past medical history (p rocedure) Documentation of past medical history (p rocedure) Documentation of past medical history (p rocedure) Documentation of past medical history (p rocedure) Documentation of past medical history (p rocedure) Documentation of past medical history (p rocedure) Documentation of past medical history (p rocedure) Documentation of past medical history (p rocedure) Documentation of past medical history (p rocedure) BCC Review Of Systems No Data Assessment 1.CosmeticOther (Cosmetic) Plan of Care Code Detail Instructions 493930 metronidazole 0.75 % topical cre am Apply once, increasing to twice daily to face for rosacea if well-tolerated; non-comedogenic moisturizer 10 mins after with SPF 30+ Instructions No Data Social History Code Activity Start Date End Date 017232016 (SNOMED) Never smoker Sex Female Sexual orientation Unspecified Gender identity Unspecified Vital Signs No data Insurances Coverage Status Coverage Type Relationship to Subscriber Member Identifier Subscriber Identifier Group Identifier Payer Identifier Inactive 1 Self [id number] Inactive Self [id number] Active Self [id number] Inactive 2 Self [id number]
--- OUTSIDE RECORDS SUMMARY | 2025-07-16 17:39 | XMS_ITS | Patient Health Record ---
[facility] Address [address] [place] [address] Care Team Providers Care Adjunct Trainer Name Role Phone Dina Machado Primary Care Provider Unavailabl e Black, Lis Unavailable [phone] Reason For Referral No Information Medications Medication [...] Problem Acquired hammer toe of right foot (0566174681658836) Other hammer toe(s) (acquired), right foot (M20.41) Active confirmed Problem Acquired hammer toe of left foot (1494704502744149) Other hammer toe(s) (acquired), left foot (M20.42) Active confirmed Problem Acquired hallux valgus (42549294) Hallux valgus (acquired), right foot (M20.11) Active confirmed Problem Localized, primary osteoarthritis of the ankle and/or foot (845055148) Arthritis of joint of lesser toe, left (M19.072) Active confirmed Problem Localized, primary osteoarthritis of the ankle and/or foot (437887050) Arthritis of joint of lesser toe, right (M19.071) Active confirmed Plan Of Treatment No Information Insurance Providers Payer Name Payer Address Payer Phone Subscriber Number Group Number Insured Name Patient Relationship to Insured Coverage Start Date Coverage End Date [place] [address] [place] [phone] [id number] Roxie Dawn Self - patient is the insured Medical (General) History Medical History History ICD Code covid-19 thyroid Chicken pox Surgical History Surgery Date(Month/Year) laser eye surgery
== END 2025-07-16 14:31 | disposition home or self-care (01) ==
LOC: HO.HMCH 13:33
PROVIDERS: PCP Internal Medicine; Visit Provider Student in an Organized Health Care Education/Training Program
DX: Z00.00 Encounter for general adult medical examination without abnormal findings (principal); R14.0 Abdominal distension (gaseous); E03.9 Hypothyroidism, unspecified; Z23 Encounter for immunization

== ENCOUNTER → 2025-07-16 13:32 | Outpatient (BNVA) | payer OTHER, SELFPAY | PROVIDERS: PCP Internal Medicine; Visit Provider Student in an Organized Health Care Education/Training Program | DX: Z00.00 Encounter for general adult medical examination without abnormal findings (principal); Z23 Encounter for immunization; R14.0 Abdominal distension (gaseous); E03.9 Hypothyroidism, unspecified | CPT/HCPCS: 90471; 90656; 96127 ==

== ENCOUNTER 2025-07-17 06:54 | Outpatient (REF) | payer OTHER, SELFPAY | END 2025-07-17 06:55 | disposition home or self-care (01) | LOC: HO.LNP 06:54 | PROVIDERS: Visit Provider Student in an Organized Health Care Education/Training Program | DX: R14.0 Abdominal distension (gaseous) (principal) | CPT/HCPCS: 87338 ==